=== PATIENT | female | born 1925 | race Caucasian/White ===

== ENCOUNTER 2016-08-25 07:48 | Inpatient (IN) | payer MEDICARE, OTHER ==
[~2016-08-25] VITALS: Ht 149.9 cm; Wt 64.1 kg
[2016-08-25] VITALS (22 sets, daily range): BP systolic 85–175; BP diastolic 61–93; PULSE 101–130; RESP 12–24; TEMP 98.5–99.4; O2SAT 90–100
[~2016-08-25 07:48] MED LIST: APIX2.5T PO; FERR324T4 PO; METO50TA PO; OXYC1SOL5 PO; PROC5 PO; STOO100C PO; TEMA15 PO; THERM PO
--- NOTE | 2016-08-25 08:06 | PD ---
HPI Chief Complaint: respiratory distress Time Seen by Provider: 08:01 Travel History International Travel<30 days: No Contact w/Intl Traveler<30days: No Traveled to known affect area: No History of Present Illness HPI This is an 89-year-old female who presents from the shelter with complaints of shortness of breath. The patient is unable to give any history as she is nonverbal. According to paramedics, call was for difficulty breathing. When they arrived they found her tachypneic with a respiratory rate in the 30s. They also report her O2 sats in the high 80s. They placed her on 100% nonrebreather and transported here. According to her MAR, it appears that she has COPD as well as possible CHF. There is no other history that I could obtain. PFSH Past Medical History Anxiety: Yes Cancer: No Cardiovascular Problems: No COPD: Yes Dementia: Yes (per family) Psychiatric: No Past Surgical History Joint Replacement: Yes (L HIP AND NOW R HIP) Pacemaker: No Social History Alcohol Use: No Tobacco Use: No Substance Use: No Allergies-Medications (Allergen,Severity, Reaction): Coded Allergies: No Known Allergies (Unverified , 03/15/15) Reported Meds & Prescriptions Reported Meds & Active Scripts Active Eliquis (Apixaban) 2.5 Mg Tab 2.5 Mg PO BID Colace (Docusate Sodium) 100 Mg Cap 100 Mg PO DAILY Ferrous Sulfate 324 Mg Tab 325 Mg PO BID Restoril 15 mg (Temazepam) 15 Mg Cap 15 Mg PO HS PRN Compazine 5 Mg Tab (Prochlorperazine Maleate) 5 Mg Tab 5 Mg PO Q6H PRN Oxycodone/Acetaminophen 5 mg/325 mg 1 Tab Tab 1 Tab PO Q4H PRN Thera M Plus (Multivitamins/Minerals Therap) 1 Tab Tab 1 Tab PO BID Metoprolol Tartrate 50 Mg Tab 50 Mg PO Q12H Review of Systems ROS Limitations: Clinical Condition (patient unable to give any history. Review of systems obtained from paramedics.) Respiratory: Positive: Shortness of Breath Physical Exam Narrative GENERAL: Well-developed female in moderate to severe respiratory distress. The patient is nonverbal and not able to provide history. SKIN: Focused skin assessment warm/dry. HEAD: Atraumatic. Normocephalic. EYES: No scleral icterus. No injection or drainage. ENT: No nasal bleeding or discharge. Mucous membranes pink. NECK: Trachea midline. Supple CARDIOVASCULAR: Regular rate and rhythm. No murmur appreciated. RESPIRATORY: Positive accessory muscle use. Tachypnea with a respiratory rate in the 30s. Patient had questionable Rales at the bases. GASTROINTESTINAL: Abdomen soft, non-distended. No pulsatile masses. MUSCULOSKELETAL: No obvious deformities. No clubbing. No cyanosis. No edema. NEUROLOGICAL: Awake and nonverbal. No obvious cranial nerve deficits. Motor grossly within normal limits. PSYCHIATRIC: Appropriate mood and affect; insight and judgment normal. Data Data Last Documented VS Vital Signs Date Time Temp Pulse Resp B/P Pulse Ox O2 Delivery O2 Flow Rate FiO2 08/25/16 10:20 118 16 122/68 100 08/25/16 09:45 60 08/25/16 08:50 Venturi Mask 08/25/16 08:26 10 08/25/16 08:23 99.4 Orders Complete Blood Count With Diff (08/25/16 08:01) Comprehensive Metabolic Panel (08/25/16 08:01) B-Type Natriuretic Peptide (08/25/16 08:01) Ckmb (Isoenzyme) Profile (08/25/16 08:01) Troponin I (08/25/16 08:01) Arterial Blood Gas (Abg) (08/25/16 08:01) Urinalysis - C+S If Indicated (08/25/16 08:01) Iv Access Insert/Monitor (08/25/16 08:01) Electrocardiogram (08/25/16 08:01) Ecg Monitoring (08/25/16 08:01) Oximetry (08/25/16 08:01) Oxygen Administration (08/25/16 08:01) Chest, Single Ap (08/25/16 08:01) Sodium Chloride 0.9% Flush (Ns Flush) (08/25/16 08:15) Methylprednisolone So Succ Inj (Solumedr (08/25/16 08:15) Albuterol-Ipratropium Neb (Duoneb Neb) (08/25/16 08:15) Albuterol Neb (Albuterol Neb) (08/25/16 08:15) Furosemide Inj (Lasix Inj) (08/25/16 08:45) Etomidate Inj (Amidate Inj) (08/25/16 09:30) Succinylcholine Inj (Quelicin Inj) (08/25/16 09:30) Propofol 1000 Mg/100 Ml Inj (Diprivan 10 (08/25/16 09:30) ^ Infusion (08/25/16 09:29) RASS (08/25/16 09:29) Neurological Rass Scale CARISSA.Q2H (08/25/16 09:29) Admit To Inpatient (08/25/16 ) Code Status (08/25/16 09:59) Vital Signs (Adult) CARISSA.Q1H (08/25/16 09:59) Activity Bed Rest (08/25/16 09:59) ^ Elevate Head Of Bed (08/25/16 09:59) Neuro Checks . ORDERED (08/25/16 09:59) Intake + Output Q1H (08/25/16 09:59) Pantoprazole Inj (Protonix Inj) (08/25/16 11:00) Albuterol-Ipratropium Neb (Duoneb Neb) (08/25/16 12:00) Albuterol-Ipratropium Neb (Duoneb Neb) (08/25/16 10:00) Complete Blood Count With Diff (08/26/16 04:00) Comprehensive Metabolic Panel (08/26/16 04:00) Magnesium (Mg) (08/26/16 04:00) Phosphorus (Po4) (08/26/16 04:00) Sputum Culture And Gram Stain (08/25/16 09:59) Dish Stacker / Telemetry CARISSA.Q8H (08/25/16 09:59) Heparin Inj (Heparin Inj) (08/25/16 10:00) ^ Initiate Protocol (08/25/16 09:59) Instruction (08/25/16 09:59) [facility] [place] (08/25/16 10:00) Chlorhexidine 2% Cloth (Chlorhexidine 2% (08/26/16 04:00) Chlorhexidine 2% Cloth (Chlorhexidine 2% (08/25/16 10:00) [facility]sa Pcr Surveillance (08/25/16 09:59) Docusate Sodium-Senna (Araceli-Colace) (08/25/16 10:00) Magnesium Hydroxide Liq (Milk Of Magnesi (08/25/16 10:00) Sennosides (Senokot) (08/25/16 10:00) Bisacodyl Supp (Dulcolax Supp) (08/25/16 10:00) Lactulose Liq (Lactulose Liq) (08/25/16 10:00) Inpatient Certification (08/25/16 ) Methylprednisolone So Succ Inj (Solumedr (08/25/16 14:00) Troponin I (08/25/16 14:00) Troponin I (08/25/16 20:00) Echo 2d Comp With Doppler (08/25/16 ) Ct Pulmonary Angiogram (08/25/16 ) Piperacil-Tazo 3.375 Gm Premix (Zosyn 3. (08/25/16 11:00) Vancomycin Inj (Vancomycin Inj) (08/25/16 11:30) Blood Glucose Goal (Criteria) (08/25/16 10:05) Hypoglycemia 70 Mg/Dl Or < (08/25/16 10:05) Notify Dr: Other (08/25/16 10:05) Dextrose 50% In Adryan (Vial) Inj (D50w (Vi (08/25/16 10:15) Glucagon Inj (Glucagon Inj) (08/25/16 10:15) Insulin Human Reg Supp Scale (Novolin R (08/25/16 11:00) Chest, Single Ap (08/25/16 10:15) Ct Brain W/O Iv Contrast(Rout) (08/25/16 ) Apixaban (Eliquis) (08/25/16 12:00) Blood Culture (08/25/16 10:25) Scd Bilateral/Knee High CARISSA.QSHIFT (08/25/16 10:25) Prothrombin Time / Inr (Pt) (08/25/16 10:29) Docusate Sodium-Senna (Araceli-Colace) (08/25/16 12:00) Labs Laboratory Tests Test 08/25/16 08/25/16 08/25/16 08:00 08:08 09:50 White Blood Count 13.0 TH/MM3 Red Blood Count 5.06 MIL/MM3 Hemoglobin 14.0 GM/DL Hematocrit 44.3 % Mean Corpuscular Volume 87.5 FL Mean Corpuscular Hemoglobin 27.7 PG Mean Corpuscular Hemoglobin 31.6 % Concent Red Cell Distribution Width 14.5 % Platelet Count 324 TH/MM3 Mean Platelet Volume 8.4 FL Neutrophils (%) (Auto) % Lymphocytes (%) (Auto) % Monocytes (%) (Auto) % Eosinophils (%) (Auto) % Basophils (%) (Auto) % Neutrophils # (Auto) TH/MM3 Lymphocytes # (Auto) TH/MM3 Monocytes # (Auto) TH/MM3 Eosinophils # (Auto) TH/MM3 Basophils # (Auto) TH/MM3 CBC Comment AUTO DIFF Differential Total Cells 100 Counted Neutrophils % (Manual) 39 % Band Neutrophils % 41 % Lymphocytes % 11 % Monocytes % 7 % Neutrophils # (Manual) 10.7 TH/MM3 Metamyelocytes 2 % Nucleated Red Blood Cells 1 /100 WBC Differential Comment FINAL DIFF MANUAL Toxic Granulation 1+ Toxic Vacuolation PRESENT Platelet Estimate NORMAL Platelet Morphology Comment ENLARGED Sodium Level 144 MEQ/L Potassium Level 3.9 MEQ/L Chloride Level 103 MEQ/L Carbon Dioxide Level 31.5 MEQ/L Anion Gap 10 MEQ/L Blood Urea Nitrogen 34 MG/DL Creatinine 0.96 MG/DL Estimat Glomerular Filtration 55 ML/MIN Rate Random Glucose 163 MG/DL Calcium Level 9.7 MG/DL Total Bilirubin 0.4 MG/DL Aspartate Amino Transf 22 U/L (AST/SGOT) Alanine Aminotransferase 28 U/L (ALT/SGPT) Alkaline Phosphatase 91 U/L Total Creatine Kinase 61 U/L Troponin I 0.25 NG/ML B-Type Natriuretic Peptide 530 PG/ML Total Protein 7.4 GM/DL Albumin 2.5 GM/DL Blood Gas Puncture Site RT RADIAL Blood Gas Patient Temperature 98.6 Blood Gas HCO3 32 mmol/L Blood Gas Base Excess 6.4 mmol/L Blood Gas Oxygen Saturation 65 % Arterial Blood pH 7.35 Arterial Blood Partial 59 mmHg Pressure CO2 Arterial Blood Partial 36 mmHG Pressure O2 Arterial Blood Oxygen Content 13.2 Vol % Arterial Blood 1.0 % Carboxyhemoglobin Arterial Blood Methemoglobin 0.7 % Blood Gas Hemoglobin 14.5 G/DL Oxygen Delivery Device ROOM AIR Blood Gas Inspired Oxygen 21 % Urine Color YELLOW Urine Turbidity HAZY Urine pH 5.5 Urine Specific Jackson 1.017 Urine Protein 30 mg/dL Urine Glucose (UA) NEG mg/dL Urine Ketones NEG mg/dL Urine Occult Blood SMALL Urine Nitrite NEG Urine Bilirubin NEG Urine Urobilinogen 2.0 MG/DL Urine Leukocyte Esterase NEG Urine RBC 2 /hpf Urine WBC 3 /hpf Urine Squamous Epithelial 1 /hpf Cells Urine Bacteria RARE /hpf Urine Hyaline Casts 7 /lpf Urine Granular Casts 1 /lpf Urine Mucus FEW /lpf Microscopic Urinalysis Comment CULT NOT INDICATED MDM Medical Decision Making Medical Screen Exam Complete: Yes Emergency Medical Condition: Yes Differential Diagnosis COPD exacerbation versus pneumonia versus CHF. Narrative Course 89-year-old female presents with respiratory distress from the shelter. The patient was tachypnic and tachycardic when she arrived. The patient was nonverbal secondary to severe respiratory distress. Blood gas showed PO2 of 36. Patient was starting to fatigue. She was intubated by this physician. Her blood work also shows that she's got prerenal azotemia. She's been given a 500 cc fluid bolus. Troponin was elevated which is likely secondary to her tachycardia. There was no acute ST elevation noted on EKG however this was not an ideal EKG as she was sinus tach. Critical Care Narrative Aggregate critical care time was 45 minutes. Time to perform other separately billable procedures was not included in the critical care time. My time did not include minutes spent treating any other patients simultaneously or on activities that did not directly contribute to the patient's treatment. The services I provided to this patient were to treat and/or prevent clinically significant deterioration that could result in: I provided critical care services requiring my management, as noted below: Chart data review, documentation time, medication orders and management, vital sign assessments/reviewing monitor data, ordering and reviewing lab tests, ordering and interpreting/reviewing x-rays and diagnostic studies, care of the patient and discussion of the patient with the admitting physicians. Procedures Procedure Narrative Intubated emergently: INTUBATION: The patient was put in optimal position for the procedure. Rapid sequence intubation was initiated by me using 20 milligrams of etomidate IV and 100 milligrams of succinylcholine IV. The patient was intubated with a 7.5 cuffed endotracheal tube. Tube placement was confirmed by visualization of the tube and balloon passing through the cords, capnometry and subsequent chest x- ray. Breath sounds were equal and well aerated bilaterally postintubation. No breath sounds over stomach. Patient tolerated procedure well. Sepsis Criteria SIRS Criteria (2 or more): Heart rate over 90, RR > 20 or PaCO2 < 32 Diagnosis Primary Impression: Respiratory failure Additional Impressions: Prerenal azotemia Elevated troponin Admitting Information Admitting Physician Requests: Admit Héctor Diaz MD Aug 25, 2016 08:06
[2016-08-25 08:12] LABS: BLOOD GAS BASE EXCESS 6.4 mmol/L (-2-2); BLOOD GAS HCO3 32 mmol/L (22-26); BLOOD GAS METHEMOGLOBIN 0.7 % (0-2); BLOOD GAS O2 HGB SATURATION 65 % (90-100); BLOOD GAS OXYGEN CONTENT 13.2 Vol % (12.0-20.0); BLOOD GAS PCO2 59 mmHg (38-42); BLOOD GAS PO2 36 mmHG (61-120); BLOOD GAS TOTAL HGB 14.5 G/DL (12.0-16.0); TEMP CORR TO 98.6
[2016-08-25 08:13] LABS: CRITICAL VALUE YES; DRAW SITE RT RADIAL; FIO2 21 %; NUMBER OF ARTERIAL PUNCTURES 1; OXYGEN DEVICE ROOM AIR; ULNAR PULSE Y
[2016-08-25] MEDS ORDERED: RESP: ALBUTEROL 2.5 MG/3 ML NEB (SCH) INH (08:15)
[2016-08-25] MEDS ORDERED: methylPREDNISolone SOD SUCC 125 MG/2 ML VIAL IVP ONE (08:15)
[2016-08-25] MEDS ORDERED: RESP: ALBUTEROL 2.5 MG/IPRATROPIUM 0.5 MG NEB (SCH) INH ONE (08:15)
[2016-08-25 08:22] LABS: HEMATOCRIT 44.3 % (35.0-46.0); MEAN CELL VOLUME 87.5 FL (80.0-100.0); MEAN CORPUSCULAR HEMOGLOBIN 27.7 PG (27.0-34.0); MEAN CORPUSCULAR HGB CONC 31.6 % (32.0-36.0); PLATELET COUNT 324 TH/MM3 (150-450); RED BLOOD COUNT 5.06 MIL/MM3 (4.00-5.30); RED CELL DISTRIBUTION WIDTH 14.5 % (11.6-17.2)
--- NOTE | 2016-08-25 08:22 | RADRPT ---
EXAM DATE/TIME: 08/25/2016 08:15 [facility] COMPARISON: CHEST SINGLE AP, March 15, 2015, 4:16. INDICATIONS : Short of breath MEDICAL HISTORY : unobtainable SURGICAL HISTORY : bilateral hip replacements ENCOUNTER: Initial ACUITY: 1 day PAIN SCORE: Non-responsive. LOCATION: Bilateral chest FINDINGS: Cardiac silhouette is enlarged and pulmonary vascularity is indistinct. There is mild diffuse interst itial prominence with patchy bibasilar airspace disease and likely trace bilateral pleural effusions. Remainder of the exam is unchanged. CONCLUSION: 1. Cardiomegaly with mild congestive pattern. Russ Tucker MD on August 25, 2016 at 8:18 Board Certified Radiologist. This report was verified electronically.
[2016-08-25 08:24] LABS: HEMO FLAGS AUTO DIFF
[2016-08-25 08:39] LABS: ALT (GPT) 28 U/L (10-53); ANION GAP 10 MEQ/L (5-15); AST (GOT) 22 U/L (15-37); BICARBONATE 31.5 MEQ/L (21.0-32.0); BLOOD UREA NITROGEN 34 MG/DL (7-18); CHLORIDE 103 MEQ/L (98-107); GLOMERULAR FILTRATION RATE 55 ML/MIN (>89); POTASSIUM 3.9 MEQ/L (3.5-5.1); SODIUM (NA) 144 MEQ/L (136-145)
[2016-08-25 08:43] LABS: ALKALINE PHOSPHATASE 91 U/L (45-117); TOTAL BILIRUBIN ADULT 0.4 MG/DL (0.2-1.0)
[2016-08-25] MEDS ORDERED: FUROSEMIDE 40 MG/4 ML VIAL IV PUSH ONE (08:45)
[2016-08-25 08:46] LABS: CREATINE KINASE 61 U/L (26-192)
[2016-08-25 08:51] LABS: BANDS 41 % (0-6); CORRECTED NUCLEATED RBC 1 /100 WBC (0-0); METAMYELOCYTES 2 % (0-1); NEUTROPHIL # MANUAL DIFF 10.7 TH/MM3 (1.8-7.7); POLYS (SEG NEUTROPHILS) 39 % (16-70); WBC DIFF SAMPLE 100
[2016-08-25 08:52] LABS: TOXIC GRANULATION 1+ (NORMAL); TOXIC VACUOLATION PRESENT (NONE SEEN)
[2016-08-25 08:53] LABS: PLATELET ESTIMATE SMEAR NORMAL (NORMAL); PLATELET MORPHOLOGY ENLARGED (NORMAL); SCAN/DIFF FINAL DIFF MANUAL
[2016-08-25] MEDS ORDERED: SUCCINYLCHOLINE CHLORIDE 200 MG/10 ML VIAL IVP ONE (09:30)
[2016-08-25] MEDS ORDERED: ETOMIDATE 20 MG/10 ML VIAL IVP ONE (09:30)
[2016-08-25] MEDS: PROPOFOL 1000 MG/100 ML INJ 100 ML IV SCH ×3 (09:45→22:18)
[2016-08-25] MEDS ORDERED: MISCELLANEOUS NURSING INFORMATION XX SCH (10:00)
[2016-08-25] MEDS ORDERED: RESP: ALBUTEROL 2.5 MG/IPRATROPIUM 0.5 MG NEB (PRN) INH (10:00)
[2016-08-25] MEDS ORDERED: SENNOSIDES 8.6 MG TAB PO PRN (10:00)
[2016-08-25] MEDS ORDERED: LACTULOSE SYRUP 20 GM/30 ML CUP PO PRN (10:00)
[2016-08-25] MEDS ORDERED: CHLORHEXIDINE GLUCONATE 2 % 1 PACK (2 CLOTHS) TOP PRN (10:00)
[2016-08-25] MEDS ORDERED: DOCUSATE SODIUM 50 MG/SENNA 8.6 MG TAB PO SCH (10:00)
[2016-08-25] MEDS ORDERED: BISACODYL 10 MG SUPP RECTAL PRN (10:00)
[2016-08-25] MEDS ORDERED: HEPARIN SODIUM - SQ 10,000 UNITS/ML VIAL SQ SCH (10:00)
[2016-08-25] MEDS ORDERED: MAGNESIUM HYDROXIDE SUSP 30 ML CUP PO PRN (10:00)
[2016-08-25] MEDS ORDERED: DEXTROSE 50% IN WATER 50 ML VIAL(D50) IV PRN (10:15)
[2016-08-25] MEDS ORDERED: GLUCAGON 1 MG/ML VIAL OTHER PRN (10:15)
[2016-08-25 10:16] LABS: BACTERIA, URINE RARE /hpf; BLOOD, URINE SMALL (NEG); GLUCOSE,URINE NEG (NEG); GRANULAR CAST, URINE 1 /lpf; HYALINE CAST, URINE 7 /lpf (RARE); KETONE, URINE NEG (NEG); MUCUS URINE FEW /lpf (OCC); NITRITE,URINE NEG (NEG); PH, URINE 5.5 (5.0-8.5); SQUAMOUS EPITHELIAL CELL URINE 1 /hpf (0-5); URINE COLOR YELLOW (YELLW/STRAW)
[2016-08-25 10:18] LABS: COMMENT (UR) CULT NOT INDICATED; CULTURE IF INDICATED CULT NOT INDICATED
[2016-08-25 10:58] LABS: BLOOD GAS BASE EXCESS 1.5 mmol/L (-2-2); BLOOD GAS CARBOXYHEMOGLOBIN 0.9 % (0-4); BLOOD GAS HCO3 28 mmol/L (22-26); BLOOD GAS METHEMOGLOBIN 0.6 % (0-2); BLOOD GAS O2 HGB SATURATION 92 % (90-100); BLOOD GAS PCO2 63 mmHg (38-42); BLOOD GAS PO2 75 mmHG (61-120); BLOOD GAS TOTAL HGB 13.9 G/DL (12.0-16.0); TEMP CORR TO 98.6
--- NOTE | 2016-08-25 10:58 | MH ---
cc: ARA MATHIS M.D. DATE OF ADMISSION: 08/25/2016 DATE OF : 1925 HISTORY OF PRESENT ILLNESS The patient is an 89-year-old female with a past medical history of questionable CHF, COPD and dementia, who presented to the [facility] ED from a local nursing facility after she was found tachypneic, hypoxic and in respiratory distress. Upon arrival of the paramedics the patient was reported to have an O2 saturation in the 80s and she was subsequently placed on 100% non-rebreather en route to the ED. She is nonverbal. ABG was performed on room air which showed pH of 7.35, CO2 59, PAO2 36, bicarb 32, sats of 65%. Due to her respiratory failure she was subsequently intubated with etomidate, succinylcholine and placed on full mechanical ventilation. In the ER she was given Solu-Medrol 125 mg IV push, bronchodilator treatment and Lasix 40 mg IV push. A chest x-ray showed cardiomegaly with mild CHF. Her laboratory data was significant for elevated BNP at 530 with a troponin 0.25. Also she has leukocytosis with a WBC of 13 associated with bandemia. The rest of the history is limited as the patient is intubated. PAST MEDICAL HISTORY 1. COPD. 2. CHF. 3. Anxiety disorder. 4. Dementia. PAST SURGICAL HISTORY Previous hip replacements bilaterally. SOCIAL HISTORY A alf resident. Non-smoker, non-drinker per records. FAMILY HISTORY Noncontributory. MEDICATIONS Reported medications include: 1. Eliquis 2.5 mg b.i.d. 2. Colace. 3. Ferrous sulfate. 4. Metoprolol. REVIEW OF SYSTEMS As per HPI. The rest of the review of systems is unobtainable. PHYSICAL EXAMINATION GENERAL: An 89-year-old female intubated for hypoxemic and hypercapnic respiratory failure. VITAL SIGNS: Temperature 99.4 rectally, pulse 108, blood pressure 175/93, saturation 97%. Vent setting: Assist control ventilation with a rate of 14, tidal volume 500, PEEP of 5, FIO2 60%. HEENT: Atraumatic, normocephalic. Pupils equal, round and reactive to light and accommodation. Extraocular muscles intact. Conjunctiva pink. Non-icteric sclera. Oral mucosa within normal. NECK: Supple. No JVD, adenopathy or thyromegaly. Trachea in the midline. CARDIOVASCULAR: Tachycardic. Normal S1, S2. No murmurs, rubs or gallops noted. PULMONARY: Bilateral equal entry. No wheezing. A few coarse breath sounds. ABDOMEN: Soft, nontender, no distention. Positive bowel sounds. EXTREMITIES: No cyanosis, clubbing or edema. NEUROLOGIC: Intubated and sedated with Diprivan. LABORATORY DATA WBC 13, hemoglobin 14, hematocrit 44, platelet count 324, bands 41. Sodium 144, calcium 3.9, chloride 103, CO2 31, BUN 34, creatinine 0.96, glucose 163. Troponin 0.25. BNP 530. Urinalysis negative for leukocyte esterase, nitrite and 3 wbc's. RADIOGRAPHIC STUDIES Chest x-ray showed cardiomegaly with mild CHF. EKG EKG showed sinus tachycardia with possible atrial flutter, rate of 141 beats per minute. IMPRESSION 1. Acute hypoxemic and hypercapnic respiratory failure. 2. COPD exacerbation. 3. CHF. 4. Elevated troponin. 5. Leukocytosis with bandemia. 6. History of dementia. RECOMMENDATIONS 1. Continue with Diprivan infusion for sedation and daily sedation vacation. The patient is for a CT scan of the brain without contrast. 2. Continue with vent support and maintain sats above 92%. 3. Bronchodilators in the form of DuoNeb q.4h., plus q.2h. p.r.n. for shortness of breath, and will initiate ICU vent bundle. 4. Continue with IV steroids in the form of Solu-Medrol 60 mg IV q.8h. 5. Increase respiratory rate to 16 and decrease FIO2 to 50% and check ABG post intubation. 6. Monitor heart rate and blood pressure closely and maintain MAP greater than 65 mmHg. 7. Will give aspirin 325 mg p.o. x1. 8. Monitor troponins. 9. Will obtain a 2-D echo to evaluate LV function and to rule out regional wall motion abnormalities. She was given Lasix 40 mg IV x1 in the ED. 10. Monitor renal function, I's and O's, and electrolyte replacement per protocol. 11. Will obtain a CT pulmonary angiogram of the chest to rule out PE and for further evaluation of pulmonary parenchyma. 12. Keep n.p.o. for now and place on Protonix 40 mg IV daily for GI prophylaxis. Will initiate tube feeds in the next 24 hours if the patient remains intubated. 13. Place on broad-spectrum antibiotics in the form of Zosyn/Azithromycin. In addition will give one dose of vancomycin. Monitor for signs of infection which include fever and WBC. Will check blood cultures x2 sets prior to initiation of antibiotics. 14. Sliding scale insulin with Accu-Chek q.6h. for glycemic control. 15. GI prophylaxis with Protonix 40 mg daily and DVT prophylaxis with SCDs, and will resume Eliquis 2.5 mg b.i.d. 16. Further recommendations will be based on the hospital course. MD NEERAJ Haque/SEAN /10:25 AM /10:36 AM JESUS
[2016-08-25 10:59] LABS: CRITICAL VALUE YES; DRAW SITE RT BRACHIAL; FIO2 50 %; NUMBER OF ARTERIAL PUNCTURES 1; OXYGEN DEVICE VENTILATOR; VENT SETTINGS AC16/500/5PEEP
[2016-08-25 11:00] LABS: STAT YES
[2016-08-25] MEDS: INSULIN NovoLIN REGULAR SUPPLEMENTAL SCALE SQ SCH ×3 (11:00→23:00)
--- NOTE | 2016-08-25 11:05 | ECHRPT ---
Indication: CHF CONCLUSIONS Technically difficult study. The left ventricle is not well visualized. Normal left ventricular size. Mild concentric left ventricular hypertrophy. The left ventricular systolic function is normal with an estimated ejection fraction in the range of 55-60%. No regional wall motion abnormalities are present. The right ventricle is mildly dilated. The right ventricular systoilc function is normal. Structurally normal tricuspid valve. There is mild tricuspid valve regurgitation. The estimated pulmonary arterial pressure is 33 mmHg. Normal estimated pulmonary pressures. BP: 122 / 68 HR: 124 Rhythm: Other MEASUREMENTS (Male / Female) Normal Values Technical Quality:Technically difficult study 2D ECHO LV Diastolic Diameter PLAX 3.4 cm 4.2 - 5.9 / 3.9 - 5.3 cm LV Systolic Diameter PLAX 2.8 cm IVS Diastolic Thickness 0.9 cm 0.6 - 1.0 / 0.6 - 0.9 cm LVPW Diastolic Thickness 0.8 cm 0.6 - 1.0 / 0.6 - 0.9 cm LV Relative Wall Thickness 0.5 LVOT Diameter 2.0 cm M-MODE Aortic Root Diameter MM 2.5 cm LA Systolic Diameter MM 2.5 cm LA Ao Ratio MM 1.0 AV Cusp Separation MM 1.8 cm DOPPLER AV Peak Velocity 176.0 cm/s AV Peak Gradient 12.4 mmHg LVOT Peak Velocity 134.0 cm/s LVOT Peak Gradient 7.2 mmHg AV Area Cont Eq pk 2.4 cm LV E' Septal Velocity 6.3 cm/s TR Peak Velocity 238.0 cm/s TR Peak Gradient 22.7 mmHg PV Peak Velocity 82.8 cm/s PV Peak Gradient 2.7 mmHg FINDINGS LEFT VENTRICLE The left ventricle is not well visualized. Normal left ventricular size. Mild concentric left ventricular hypertrophy. The left ventricular systolic function is normal with an estimated ejection fraction in the range of 55-60%. No regional wall motion abnormalities are present. RIGHT VENTRICLE The right ventricle is mildly dilated. The right ventricular systoilc function is normal. LEFT ATRIUM The left atrial size is normal. RIGHT ATRIUM The right atrial size is normal. ATRIAL SEPTUM Normal atrial septal thickness without atrial level shunting by limited color doppler interrogation. AORTA The aortic root and proximal ascending aorta are normal in size on limited imaging. MITRAL VALVE Mitral annular calcification is present. Structurally normal mitral valve. AORTIC VALVE Trileaflet aortic valve. Diffuse calcification of the aortic valve. Aortic valve sclerosis is present. No aortic valve regurgitation. No aortic valve stenosis. TRICUSPID VALVE Structurally normal tricuspid valve. There is mild tricuspid valve regurgitation. The estimated pulmonary arterial pressure is 33 mmHg. Normal estimated pulmonary pressures. PULMONARY VALVE The pulmonary valve is not well visualized. VESSELS The inferior vena cava is normal in size. PERICARDIUM No pericardial effusion. Pepe Sy MD, FACC (Electronically Signed) Final Date:25 August 2016 11:04
--- NOTE | 2016-08-25 11:06 | RADRPT ---
EXAM DATE/TIME: 08/25/2016 10:13 [facility] COMPARISON: CHEST SINGLE AP, August 25, 2016, 8:15. INDICATIONS : Post intubation MEDICAL HISTORY : Unobtainable SURGICAL HISTORY : Bilateral hip replacements ENCOUNTER: Subsequent ACUITY: 1 day PAIN SCORE: Non-responsive. LOCATION: Bilateral chest FINDINGS: ET tube, nasogastric tube are in good position. The lungs are better aerated. Heart remains enlarge d. Significant interstitial edema persists. There is no pneumothorax. CONCLUSION: 1. Support apparatus in good position. 2. Congestive failure. Oren Patricia MD FACR on August 25, 2016 at 10:51 Board Certified Radiologist. This report was verified electronically.
[2016-08-25 11:28] LABS: PROTHROMBIN TIME - PATIENT 11.4 SEC (9.8-11.6)
[2016-08-25] MEDS ORDERED: VANCOMYCIN INJ 1,000 MG in SODIUM CHLOR 0.9% 250 ML INJ 250 ML IV ONE (11:30)
[2016-08-25] MEDS ORDERED: IOHEXOL 350 MG/ML 10 ML VIAL (for RAD DIAG) IV ONE (11:46)
[2016-08-25] MEDS: APIXABAN 2.5 MG TABLET PO SCH ×2 (12:00→21:19)
[2016-08-25] MEDS: DOCUSATE SODIUM 50 MG/SENNA 8.6 MG TAB PO SCH ×2 (12:00→21:19)
--- NOTE | 2016-08-25 12:09 | RADRPT ---
EXAM DATE/TIME: 08/25/2016 11:43 [facility] COMPARISON: No previous studies available for comparison. INDICATIONS : Shortness of breath, rule out bleed. IV CONTRAST: 74 cc Omnipaque 350 (iohexol) IV RADIATION DOSE: 12.83 CTDIvol (mGy) MEDICAL HISTORY : Non-responsive. SURGICAL HISTORY : Non-responsive. ENCOUNTER: Initial ACUITY: 1 day PAIN SCALE: Non-responsive LOCATION: chest TECHNIQUE: Volumetric scanning of the chest was performed using a pulmonary embolism protocol MIP images were re constructed. Using automated exposure control and adjustment of the mA and/or kV according to patien t size, radiation dose was kept as low as reasonably achievable to obtain optimal diagnostic quality images. FINDINGS: The examination is of good diagnostic quality. No pulmonary embolus is identified. The endotracheal tubes in good position. As a nasogastric tube in good position. There are consolidative changes and minimal bibasilar effusions. There is COPD change and tubular bro nchiectasis in both lower lobes. The examination also demonstrates a fairly diffuse reticular nodular appearing infiltrate. I believe this probably represents inflammatory changes and in the airway dise ase however, other differential considerations would include TB, sarcoid and possible fungal infectio n. No significant hilar or mediastinal adenopathy is seen. The visualized bony structures are intact. CONCLUSION: 1. No pulmonary embolus identified. 2. Tubular bronchiectasis and diffuse reticular-nodular infiltrate. 3. Bibasal atelectasis. Dangelo Patricia MD on August 25, 2016 at 12:01 Board Certified Radiologist. This report was verified electronically.
[2016-08-25] MEDS: RESP: ALBUTEROL 2.5 MG/IPRATROPIUM 0.5 MG NEB (SCH) INH ×3 (12:12→20:10)
--- NOTE | 2016-08-25 12:19 | RADRPT ---
EXAM DATE/TIME: 08/25/2016 11:44 [facility] COMPARISON: No previous studies available for comparison. INDICATIONS : Shortness of breath/ rule out bleed, altered mental status. RADIATION DOSE: 56.35 CTDIvol (mGy) MEDICAL HISTORY : None SURGICAL HISTORY : None. ENCOUNTER: Initial ACUITY: 1 day PAIN SCALE: 1/10 LOCATION: Cranial TECHNIQUE: Multiple contiguous axial images were obtained of the head. Using automated exposure control and adj ustment of the mA and/or kV according to patient size, radiation dose was kept as low as reasonably a chievable to obtain optimal diagnostic quality images. FINDINGS: Diffuse cerebral atrophy is noted. Moderate to severe periventricular and subcortical white matter s mall vessel ischemic changes are noted bilaterally. Bilateral pontine ischemic changes are also note d. Old lacunar infarcts are noted within the right cerebellar hemisphere. There is no acute hemorrh age, midline shift or extraaxial fluid collections. No acute infarction is noted. Minimal mucosal t hickening is noted within the left maxillary sinus. CONCLUSION: 1. Diffuse cerebral atrophy. 2. Diffuse periventricular and subcortical white matter small vessel ischemic changes as well as quiana ateral pontine small vessel ischemic changes. 3. Scattered old lacunar infarcts within the right cerebellar hemisphere. 4. No acute infarct, acute hemorrhage, mass effect or extraaxial fluid collections. 5. Minimal mucosal thickening within the left maxillary sinus. Wilner Smith MD on August 25, 2016 at 11:55 Board Certified Radiologist. This report was verified electronically.
[2016-08-25] MEDS: PIPERACIL-TAZO 3.375 GM PREMIX 50 ML IV SCH ×3 (12:28→22:19)
[2016-08-25] MEDS: PANTOPRAZOLE SODIUM 40 MG VIAL IV SCH (12:28)
[2016-08-25] MEDS: methylPREDNISolone SOD SUCC 40 MG/1 ML VIAL IV PUSH SCH ×2 (14:26→21:20)
[2016-08-25] MEDS ORDERED: ASPIRIN 325 MG TAB PO ONE (15:45)
[2016-08-25 17:39] LABS: BLOOD GAS BASE EXCESS 3.7 mmol/L (-2-2); BLOOD GAS CARBOXYHEMOGLOBIN 1.1 % (0-4); BLOOD GAS HCO3 28 mmol/L (22-26); BLOOD GAS METHEMOGLOBIN 1.1 % (0-2); BLOOD GAS O2 HGB SATURATION 92 % (90-100); BLOOD GAS OXYGEN CONTENT 16.6 Vol % (12.0-20.0); BLOOD GAS PCO2 44 mmHg (38-42); BLOOD GAS PO2 68 mmHg (61-120); BLOOD GAS TOTAL HGB 12.9 G/DL (12.0-16.0); CRITICAL VALUE NO; OXYGEN DEVICE VENTILATOR; TEMP CORR TO 98.6
[2016-08-25 17:40] LABS: DRAW SITE RT BRACHIAL; FIO2 50 %; NUMBER OF ARTERIAL PUNCTURES 1; STAT NO; ULNAR PULSE PRESENT; VENT SETTINGS A/C 18/550/+5PEEP
[2016-08-25] MEDS: AZITHROMYCIN INJ 500 MG in SODIUM CHLOR 0.9% 250 ML INJ 250 ML IV SCH (18:08)
[2016-08-26] VITALS (18 sets, daily range): BP systolic 118–157; BP diastolic 70–88; PULSE 91–115; RESP 16–52; TEMP 97.9–98.7; O2SAT 90–98
[2016-08-26] MEDS: RESP: ALBUTEROL 2.5 MG/IPRATROPIUM 0.5 MG NEB (SCH) INH ×7 (01:10→23:37)
[2016-08-26] MEDS: CHLORHEXIDINE GLUCONATE 2 % 1 PACK (2 CLOTHS) TOP SCH (04:00)
[2016-08-26 04:56] LABS: ALKALINE PHOSPHATASE 80 U/L (45-117); TOTAL BILIRUBIN ADULT 0.5 MG/DL (0.2-1.0)
[2016-08-26 05:00] LABS: ALT (GPT) 22 U/L (10-53); ANION GAP 11 MEQ/L (5-15); AST (GOT) 18 U/L (15-37); BICARBONATE 28.7 MEQ/L (21.0-32.0); BLOOD UREA NITROGEN 39 MG/DL (7-18); CHLORIDE 106 MEQ/L (98-107); GLOMERULAR FILTRATION RATE 61 ML/MIN (>89); MAGNESIUM 2.4 MG/DL (1.5-2.5); SODIUM (NA) 146 MEQ/L (136-145)
[2016-08-26] MEDS: INSULIN NovoLIN REGULAR SUPPLEMENTAL SCALE SQ SCH ×4 (05:00→23:00)
[2016-08-26 05:02] LABS: POTASSIUM 3.7 MEQ/L (3.5-5.1)
[2016-08-26] MEDS: methylPREDNISolone SOD SUCC 40 MG/1 ML VIAL IV PUSH SCH ×3 (05:21→21:16)
[2016-08-26] MEDS: PIPERACIL-TAZO 3.375 GM PREMIX 50 ML IV SCH ×4 (05:22→21:17)
[2016-08-26 06:05] LABS: AUTOMATED NEUTROPHIL # 11.3 TH/MM3 (1.8-7.7); BASOPHIL % 0.1 % (0.0-2.0); EOSINOPHIL % 0.1 % (0.0-4.0); HEMATOCRIT 39.6 % (35.0-46.0); HEMO FLAGS DIFF FINAL; LYMPH % 4.7 % (9.0-44.0); LYMPHOCYTE # 0.6 TH/MM3 (1.0-4.8); MEAN CELL VOLUME 85.7 FL (80.0-100.0); MEAN CORPUSCULAR HEMOGLOBIN 27.3 PG (27.0-34.0); MEAN CORPUSCULAR HGB CONC 31.9 % (32.0-36.0); MONO % 5.1 % (0.0-8.0); PLATELET COUNT 251 TH/MM3 (150-450); RED BLOOD COUNT 4.62 MIL/MM3 (4.00-5.30); RED CELL DISTRIBUTION WIDTH 13.9 % (11.6-17.2); WHITE BLOOD COUNT 12.5 TH/MM3 (4.0-11.0)
[2016-08-26] MEDS: PROPOFOL 1000 MG/100 ML INJ 100 ML IV SCH ×2 (06:11→08:17)
--- NOTE | 2016-08-26 08:16 | HHI.CCPN ---
Subjective Remarks/Hospital Course The patient is an 89-year-old female with a past medical history of ? CHF, COPD and dementia, who presented to the [facility] ED from a local nursing facility after she was found tachypneic, hypoxic and in respiratory distress. Upon arrival of the paramedics the patient was reported to have an O2 saturation in the 80s and she was subsequently placed on 100% non-rebreather en route to the ED. She is nonverbal. ABG was performed on room air which showed pH of 7.35, CO2 59, PAO2 36, bicarb 32, sats of 65%. Due to her respiratory failure she was subsequently intubated with etomidate, succinylcholine and placed on full mechanical ventilation. In the ER she was given Solu-Medrol 125 mg IV push, bronchodilator treatment and Lasix 40 mg IV push. A chest x ray showed cardiomegaly with mild CHF. Her laboratory data was significant for elevated BNP at 530 with a troponin 0.25. Also she has leukocytosis with a WBC of 13 associated with bandemia. The rest of the history is limited as the patient is intubated. 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 Patient is sedated with Diprivan and intubated. Afebrile. CTA chest yesterday showed no PE. Objective Vital Signs Date Time Temp Pulse Resp B/P Pulse Ox O2 Delivery O2 Flow Rate FiO2 08/26/16 06:00 98 08/26/16 04:48 95 50 08/26/16 04:00 97.9 16 145/88 08/25/16 08:50 Venturi Mask 08/25/16 08:26 10 Intake and Output 08/25/16 08/25/16 08/26/16 08:00 16:00 00:00 Intake Total 256 ml Output Total 400 ml 250 ml Balance -400 ml 6 ml Result Diagram: 08/26/16 0526 08/26/16 0359 Other Results Laboratory Tests Test 08/25/16 08/25/16 08/25/16 08/25/16 09:50 10:50 10:55 15:03 Urine Color YELLOW Urine Turbidity HAZY Urine pH 5.5 Urine Specific [place] 1.017 Urine Protein 30 mg/dL Urine Glucose (UA) NEG mg/dL Urine Ketones NEG mg/dL Urine Occult Blood SMALL Urine Nitrite NEG Urine Bilirubin NEG Urine Urobilinogen 2.0 MG/DL Urine Leukocyte Esterase NEG Urine RBC 2 /hpf Urine WBC 3 /hpf Urine Squamous Epithelial 1 /hpf Cells Urine Bacteria RARE /hpf Urine Hyaline Casts 7 /lpf Urine Granular Casts 1 /lpf Urine Mucus FEW /lpf Microscopic Urinalysis Comment CULT NOT INDICATED Prothrombin Time 11.4 SEC Prothromb Time International 1.0 RATIO Ratio Blood Gas Puncture Site RT BRACHIAL Blood Gas Patient Temperature 98.6 Blood Gas HCO3 28 mmol/L Blood Gas Base Excess 1.5 mmol/L Blood Gas Oxygen Saturation 92 % Arterial Blood pH 7.27 Arterial Blood Partial 63 mmHg Pressure CO2 Arterial Blood Partial 75 mmHG Pressure O2 Arterial Blood Oxygen Content 18.0 Vol % Arterial Blood 0.9 % Carboxyhemoglobin Arterial Blood Methemoglobin 0.6 % Blood Gas Hemoglobin 13.9 G/DL Oxygen Delivery Device VENTILATOR Blood Gas Ventilator Setting AC16/500/5PEEP Blood Gas Inspired Oxygen 50 % Troponin I 0.20 NG/ML Test 08/25/16 08/25/16 08/25/16 08/26/16 17:25 17:30 20:24 03:59 Blood Gas Puncture Site RT BRACHIAL Blood Gas Patient Temperature 98.6 Blood Gas HCO3 28 mmol/L Blood Gas Base Excess 3.7 mmol/L Blood Gas Oxygen Saturation 92 % Arterial Blood pH 7.42 Arterial Blood Partial 44 mmHg Pressure CO2 Arterial Blood Partial 68 mmHg Pressure O2 Arterial Blood Oxygen Content 16.6 Vol % Arterial Blood 1.1 % Carboxyhemoglobin Arterial Blood Methemoglobin 1.1 % Blood Gas Hemoglobin 12.9 G/DL Oxygen Delivery Device VENTILATOR Blood Gas Ventilator Setting A/C 18/550/+5PEEP Blood Gas Inspired Oxygen 50 % Nasal Screen MRSA (PCR) MRSA NOT DETECTED Troponin I 0.11 NG/ML Sodium Level 146 MEQ/L Potassium Level 3.7 MEQ/L Chloride Level 106 MEQ/L Carbon Dioxide Level 28.7 MEQ/L Anion Gap 11 MEQ/L Blood Urea Nitrogen 39 MG/DL Creatinine 0.88 MG/DL Estimat Glomerular Filtration 61 ML/MIN Rate Random Glucose 178 MG/DL Calcium Level 9.4 MG/DL Phosphorus Level 2.9 MG/DL Magnesium Level 2.4 MG/DL Total Bilirubin 0.5 MG/DL Aspartate Amino Transf 18 U/L (AST/SGOT) Alanine Aminotransferase 22 U/L (ALT/SGPT) Alkaline Phosphatase 80 U/L Total Protein 6.6 GM/DL Albumin 2.1 GM/DL Test 08/26/16 05:26 White Blood Count 12.5 TH/MM3 Red Blood Count 4.62 MIL/MM3 Hemoglobin 12.6 GM/DL Hematocrit 39.6 % Mean Corpuscular Volume 85.7 FL Mean Corpuscular Hemoglobin 27.3 PG Mean Corpuscular Hemoglobin 31.9 % Concent Red Cell Distribution Width 13.9 % Platelet Count 251 TH/MM3 Mean Platelet Volume 8.3 FL Neutrophils (%) (Auto) 90.0 % Lymphocytes (%) (Auto) 4.7 % Monocytes (%) (Auto) 5.1 % Eosinophils (%) (Auto) 0.1 % Basophils (%) (Auto) 0.1 % Neutrophils # (Auto) 11.3 TH/MM3 Lymphocytes # (Auto) 0.6 TH/MM3 Monocytes # (Auto) 0.6 TH/MM3 Eosinophils # (Auto) 0.0 TH/MM3 Basophils # (Auto) 0.0 TH/MM3 CBC Comment DIFF FINAL Differential Comment Imaging Last Impressions Chest X-Ray 08/25/16 1015 Signed Impressions: Service Date/Time: Thursday, August 25, 2016 10:13 - CONCLUSION: 1. Support apparatus in good position. 2. Congestive failure. Oren Patricia MD FACR Head CT 08/25/16 0000 Signed Impressions: Service Date/Time: Thursday, August 25, 2016 11:44 - CONCLUSION: 1. Diffuse cerebral atrophy. 2. Diffuse periventricular and subcortical white matter small vessel ischemic changes as well as bilateral pontine small vessel ischemic changes. 3. Scattered old lacunar infarcts within the right cerebellar hemisphere. 4. No acute infarct, acute hemorrhage, mass effect or extraaxial fluid collections. 5. Minimal mucosal thickening within the left maxillary sinus. Wilner Smith MD CT Angiography 08/25/16 0000 Signed Impressions: Service Date/Time: Thursday, August 25, 2016 11:43 - CONCLUSION: 1. No pulmonary embolus identified. 2. Tubular bronchiectasis and diffuse reticular-nodular infiltrate. 3. Bibasal atelectasis. Dangelo Patricia MD Objective Remarks GENERAL: Patient is 89 yo intubated and sedated SKIN: Warm and dry. HEAD: Normocephalic. EYES: No scleral icterus. No injection or drainage. NECK: Supple, trachea midline. No JVD or lymphadenopathy. Orally intubated CARDIOVASCULAR: Regular rate and rhythm without murmurs, gallops, or rubs. RESPIRATORY: Breath sounds equal bilaterally. No accessory muscle use. GASTROINTESTINAL: Abdomen soft, non-tender, nondistended. MUSCULOSKELETAL: No cyanosis, or edema. Neuro: Sedated. A/P Assessment and Plan 1. Acute hypoxemic and hypercapnic respiratory failure. 2. COPD exacerbation. 3. CHF. 4. Elevated troponin. 5. Leukocytosis with bandemia. 6. History of dementia. Plan: Neuro: On Diprivan infusion for sedation and daily sedation vacation. CT brain: Diffuse cerebral atrophy, no acute infarction, hemorrhage or mass effect. Pulm: Continue with vent support and maintain sats > 92%. Bronchodilators, ICU vent bundle. Continue with Solu-Medrol 60 mg IV q.8h. Start SBT trials and possible extubation. CTA chest 08/25 no PE, bronchiectasis CV: Monitor HR and BP and maintain MAP>65 mmHg. Mild elevated trop ( trending down) echo showed EF 55-60% no RWMA : Monitor renal function, I's and O's, and electrolyte replacement per protocol. GI: On Protonix 40 mg IV daily for GI prophylaxis. Start tube feeds today if remains intubated. ID: Continue with abx( Zosyn/Azithromycin) Vanco x1 dose given 08/25 Follow up on Blood cx, strep pneumonia and Legionella urinary g pending. Check sputum cx. Endo: SSI with Accu-Chek q.6h. for glycemic control. GI prophylaxis with Protonix 40 mg daily and DVT prophylaxis with SCDs, and Eliquis 2.5 mg b.i.d. Level 3 Dereck Sullivan MD Aug 26, 2016 08:16
[2016-08-26] MEDS: SODIUM CHLORIDE 0.9% FLUSH 10 ML FLUSH IVF PRN ×2 (08:18→21:17)
[2016-08-26] MEDS: DOCUSATE SODIUM 50 MG/SENNA 8.6 MG TAB PO SCH ×2 (08:19→19:56)
[2016-08-26] MEDS: APIXABAN 2.5 MG TABLET PO SCH ×2 (08:19→19:56)
[2016-08-26] MEDS: PANTOPRAZOLE SODIUM 40 MG VIAL IV SCH (08:19)
[2016-08-26 11:36] LABS: BLOOD GAS BASE EXCESS 4.8 mmol/L (-2-2); BLOOD GAS HCO3 30 mmol/L (22-26); BLOOD GAS METHEMOGLOBIN 1.1 % (0-2); BLOOD GAS O2 HGB SATURATION 93 % (90-100); BLOOD GAS OXYGEN CONTENT 17.2 Vol % (12.0-20.0); BLOOD GAS PCO2 51 mmHg (38-42); BLOOD GAS PO2 78 mmHg (61-120); BLOOD GAS TOTAL HGB 13.2 G/DL (12.0-16.0); CRITICAL VALUE YES; DRAW SITE LT RADIAL; FIO2 40 %; NUMBER OF ARTERIAL PUNCTURES 1; OXYGEN DEVICE VENTILATOR; STAT NO; TEMP CORR TO 98.6; ULNAR PULSE PRESENT; VENT SETTINGS PEEP5/PS10
--- NOTE | 2016-08-26 14:10 | EKG ---
Date Performed: 08/25/2016 Time Performed: 08:03:16 PTAGE: 89 years EKG: SINUS TACHYCARDIA Right axis deviation Right bundle branch block Low voltage Compared to pr ior tracing no significant change PREVIOUS TRACING : 03/15/2015 03.30 DOCTOR: Jorge Gautam Interpretating Date/Time 08/26/2016 14:09:49
[2016-08-26] MEDS: AZITHROMYCIN INJ 500 MG in SODIUM CHLOR 0.9% 250 ML INJ 250 ML IV SCH (16:00)
--- NOTE | 2016-08-26 19:36 | RADRPT ---
EXAM DATE/TIME: 08/26/2016 19:03 [place] COMPARISON: No previous studies available for comparison. INDICATIONS : Shortness of breath. Edema. MEDICAL HISTORY : Chronic obstructive pulmonary disease. Dementia. SURGICAL HISTORY : Bilateral hip replacements. ENCOUNTER: Subsequent ACUITY: 2 days PAIN SCORE: Non-responsive. LOCATION: Bilateral chest FINDINGS: Patchy mid and lower lung predominant air space opacities are again noted, not significantly changed. No effusion. No pneumothorax. Endotracheal tube, nasogastric tube has been removed. CONCLUSION: Instrumentation and nasogastric tube removal. Patchy bilateral airspace opacities not significantly c hanged. Rosas Duncan MD on August 26, 2016 at 19:33 Board Certified Radiologist. This report was verified electronically.
--- NOTE | 2016-08-26 20:14 | MB ---
cc: Bebo REES M.D. DATE OF CONSULTATION 08/26/16 REASON FOR CONSULTATION Respiratory failure, ventilator management. HISTORY OF PRESENT ILLNESS This is an 89-year-old female with a history of CHF, dementia and COPD who was brought to the emergency room at [facility] after being found hypoxic and in severe respiratory distress at a senior living. The patient does have a prior history of cardiomyopathy and recently has been in a senior living due to progressive dementia. She was placed on oxygen due to hypoxemia and hypercapnia. Upon arrival in the emergency room, her blood gases again demonstrated severe hypoxia with a pO2 of 36. The patient had to be intubated and placed on ventilator support and was given sedation and now on IV sedation but assisting the ventilator. Initially, she was on 100% FIO2 which has now been weaned down to under 60%. The patient is somewhat restless and attempts at weaning the ventilator have not been successful over the past 24 hours. There is no history of chest pain or fevers or chills or nausea, vomiting or aspiration. PAST HISTORY 1. Congestive heart failure 2. Cardiomyopathy, 3. History of COPD, 4. Chronic bronchitis 5. History of dementia 6. Depression and anxiety. PAST SURGICAL HISTORY Hip replacement bilaterally. ALLERGIES None were listed. FAMILY HISTORY Noncontributory. MEDICATIONS List was reviewed. REVIEW OF SYSTEMS Unable to obtain. She is on a ventilator. PHYSICAL EXAMINATION GENERAL: This is an averagely built elderly lady pale and intubated, tachypneic. VITAL SIGNS: Blood pressure 130/70, pulse is 100, respirations 24, temperature 99.2 HEENT: Head normocephalic. Pupils are reactive. Sclerae are injected. Throat is clear. NECK: Supple with mild venous distension was while lying flat. Trachea midline and no thyroid enlargement. CHEST: Equal movements with coarse wheezes scattered throughout both lung cerna. Prolonged expirations with occasional bibasilar crackles. HEART: Sounds are irregularly irregular S1-S2. No murmur. ABDOMEN: Soft, protuberant without masses, no organomegaly or tenderness. Bowel sounds are active. EXTREMITIES: Mild varicosities, decreased pulses. NEUROLOGIC: Reflexes are 1+. The patient does withdraw to stimuli. Babinski negative. RECTAL: Exam is deferred. IMPRESSION 1. Acute hypercapnic, hypoxemic respiratory failure. 2. Congestive heart failure. 3. Chronic obstructive pulmonary disease with acute exacerbation 4. Dementia 5. History of hypertension. PLAN The patient has been maintained on ventilator support. We will wean the FIO2 down to under 40%, nebulized DuoNeb solution added q.i.d. Continue with antibiotic therapy and IV Solu-Medrol 40 mg every 8 hours will be continued. A follow up chest x-ray to be obtained. A CTA that was done yesterday was reviewed and it showed no evidence of PE. There was evidence of extensive bronchiectasis and scarring with changes of emphysema as well. The patient will be kept sedated and a repeat chest x-ray done in the a.m. If her clinical condition has stabilized, we will place her on C-PAP and try extubation soon. Thank you, Dr. Sullivan, for this consultation. MD CELINA Galdamez/ /7:18 PM /8:07 PM
[2016-08-26] MEDS ORDERED: HALOPERIDOL LACTATE 5 MG/ML AMP IV SCH (21:15)
[2016-08-27] VITALS (18 sets, daily range): BP systolic 123–177; BP diastolic 73–94; PULSE 96–118; RESP 25–36; TEMP 96.8–98.8; O2SAT 89–98
[2016-08-27] MEDS: CHLORHEXIDINE GLUCONATE 2 % 1 PACK (2 CLOTHS) TOP SCH (03:27)
[2016-08-27] MEDS: RESP: ALBUTEROL 2.5 MG/IPRATROPIUM 0.5 MG NEB (SCH) INH ×6 (03:44→23:10)
[2016-08-27] MEDS: PIPERACIL-TAZO 3.375 GM PREMIX 50 ML IV SCH ×4 (04:45→21:09)
[2016-08-27] MEDS: methylPREDNISolone SOD SUCC 40 MG/1 ML VIAL IV PUSH SCH ×3 (04:45→21:08)
[2016-08-27] MEDS: SODIUM CHLORIDE 0.9% FLUSH 10 ML FLUSH IVF PRN ×3 (04:46→21:10)
[2016-08-27] MEDS: INSULIN NovoLIN REGULAR SUPPLEMENTAL SCALE SQ SCH ×4 (05:00→23:00)
[2016-08-27 06:48] LABS: AUTOMATED NEUTROPHIL # 15.5 TH/MM3 (1.8-7.7); BASOPHIL # 0.1 TH/MM3 (0-0.2); BASOPHIL % 0.3 % (0.0-2.0); HEMATOCRIT 36.9 % (35.0-46.0); LYMPH % 4.6 % (9.0-44.0); LYMPHOCYTE # 0.8 TH/MM3 (1.0-4.8); MEAN CELL VOLUME 84.9 FL (80.0-100.0); MEAN CORPUSCULAR HEMOGLOBIN 27.5 PG (27.0-34.0); MEAN CORPUSCULAR HGB CONC 32.4 % (32.0-36.0); MONO % 6.2 % (0.0-8.0); NEUT % 88.9 % (16.0-70.0); PLATELET COUNT 276 TH/MM3 (150-450); RED BLOOD COUNT 4.34 MIL/MM3 (4.00-5.30); RED CELL DISTRIBUTION WIDTH 14.2 % (11.6-17.2); WHITE BLOOD COUNT 17.4 TH/MM3 (4.0-11.0)
[2016-08-27 06:58] LABS: HEMO FLAGS AUTO DIFF
[2016-08-27 07:20] LABS: BICARBONATE 27.9 MEQ/L (21.0-32.0)
[2016-08-27 07:29] LABS: BANDS 23 % (0-6); METAMYELOCYTES 3 % (0-1); MYELOCYTES 10 % (0-0); NEUTROPHIL # MANUAL DIFF 14.8 TH/MM3 (1.8-7.7); PLASMA CELLS 2 % (0-0); PLATELET ESTIMATE SMEAR NORMAL (NORMAL); PLATELET MORPHOLOGY NORMAL (NORMAL); POLYS (SEG NEUTROPHILS) 49 % (16-70); SCAN/DIFF FINAL DIFF MANUAL; WBC DIFF SAMPLE 100
[2016-08-27 07:37] LABS: POTASSIUM 2.7 MEQ/L (3.5-5.1)
--- NOTE | 2016-08-27 07:38 | HHI.CCPN ---
Subjective Remarks/Hospital Course The patient is an 89-year-old female with a past medical history of ? CHF, COPD and dementia, who presented to the [facility] ED from a local nursing facility after she was found tachypneic, hypoxic and in respiratory distress. Upon arrival of the paramedics the patient was reported to have an O2 saturation in the 80s and she was subsequently placed on 100% non-rebreather en route to the ED. She is nonverbal. ABG was performed on room air which showed pH of 7.35, CO2 59, PAO2 36, bicarb 32, sats of 65%. Due to her respiratory failure she was subsequently intubated with etomidate, succinylcholine and placed on full mechanical ventilation. In the ER she was given Solu-Medrol 125 mg IV push, bronchodilator treatment and Lasix 40 mg IV push. A chest x ray showed cardiomegaly with mild CHF. Her laboratory data was significant for elevated BNP at 530 with a troponin 0.25. Also she has leukocytosis with a WBC of 13 associated with bandemia. The rest of the history is limited as the patient is intubated. 08/26 [employer] acute events overnight. Patient is sedated with Diprivan and intubated. Afebrile. CTA chest yesterday showed no PE. 08/27 Patient s/p extubation yesterday on 50% VM with good sats. Afebrile. Given Haldol 5mg IV x1 last night for agitation. Objective Vital Signs Date Time Temp Pulse Resp B/P Pulse Ox O2 Delivery O2 Flow Rate FiO2 08/27/16 06:00 117 08/27/16 04:00 97.1 32 94 08/27/16 00:00 123/73 08/26/16 19:49 Venturi Mask 6.00 50 Intake and Output 08/26/16 08/26/16 08/27/16 08:00 16:00 00:00 Intake Total 246 ml 158 ml 68 ml Output Total 200 ml 225 ml 200 ml Balance 46 ml -67 ml -132 ml Result Diagram: 08/27/16 0444 08/26/16 0359 Other Results Laboratory Tests Test 08/26/16 08/27/16 11:21 04:44 Blood Gas Puncture Site LT RADIAL Blood Gas Patient Temperature 98.6 Blood Gas HCO3 30 mmol/L Blood Gas Base Excess 4.8 mmol/L Blood Gas Oxygen Saturation 93 % Arterial Blood pH 7.39 Arterial Blood Partial 51 mmHg Pressure CO2 Arterial Blood Partial 78 mmHg Pressure O2 Arterial Blood Oxygen Content 17.2 Vol % Arterial Blood 1.0 % Carboxyhemoglobin Arterial Blood Methemoglobin 1.1 % Blood Gas Hemoglobin 13.2 G/DL Oxygen Delivery Device VENTILATOR Blood Gas Ventilator Setting PEEP5/PS10 Blood Gas Inspired Oxygen 40 % White Blood Count 17.4 TH/MM3 Red Blood Count 4.34 MIL/MM3 Hemoglobin 11.9 GM/DL Hematocrit 36.9 % Mean Corpuscular Volume 84.9 FL Mean Corpuscular Hemoglobin 27.5 PG Mean Corpuscular Hemoglobin 32.4 % Concent Red Cell Distribution Width 14.2 % Platelet Count 276 TH/MM3 Mean Platelet Volume 8.5 FL Neutrophils (%) (Auto) 88.9 % Lymphocytes (%) (Auto) 4.6 % Monocytes (%) (Auto) 6.2 % Eosinophils (%) (Auto) 0.0 % Basophils (%) (Auto) 0.3 % Neutrophils # (Auto) 15.5 TH/MM3 Lymphocytes # (Auto) 0.8 TH/MM3 Monocytes # (Auto) 1.1 TH/MM3 Eosinophils # (Auto) 0.0 TH/MM3 Basophils # (Auto) 0.1 TH/MM3 CBC Comment AUTO DIFF Differential Total Cells 100 Counted Neutrophils % (Manual) 49 % Band Neutrophils % 23 % Lymphocytes % 5 % Monocytes % 8 % Neutrophils # (Manual) 14.8 TH/MM3 Metamyelocytes 3 % Myelocytes 10 % Differential Comment FINAL DIFF MANUAL Plasma Cells 2 % Platelet Estimate NORMAL Platelet Morphology Comment NORMAL Red Cell Morphology Comment NORMAL Imaging Last Impressions Chest X-Ray 08/26/16 0000 Signed Impressions: Service Date/Time: Friday, August 26, 2016 19:03 - CONCLUSION: Instrumentation and nasogastric tube removal. Patchy bilateral airspace opacities not significantly changed. Rosas Duncan MD Head CT 08/25/16 0000 Signed Impressions: Service Date/Time: Thursday, August 25, 2016 11:44 - CONCLUSION: 1. Diffuse cerebral atrophy. 2. Diffuse periventricular and subcortical white matter small vessel ischemic changes as well as bilateral pontine small vessel ischemic changes. 3. Scattered old lacunar infarcts within the right cerebellar hemisphere. 4. No acute infarct, acute hemorrhage, mass effect or extraaxial fluid collections. 5. Minimal mucosal thickening within the left maxillary sinus. Wilner Smith MD CT Angiography 08/25/16 0000 Signed Impressions: Service Date/Time: Thursday, August 25, 2016 11:43 - CONCLUSION: 1. No pulmonary embolus identified. 2. Tubular bronchiectasis and diffuse reticular-nodular infiltrate. 3. Bibasal atelectasis. Dangelo Patricia MD Objective Remarks GENERAL: Patient is 89 yo lying in bed in no acute resp distress. SKIN: Warm and dry. HEAD: Normocephalic. EYES: No scleral icterus. No injection or drainage. NECK: Supple, trachea midline. No JVD or lymphadenopathy. CARDIOVASCULAR: Regular rate and rhythm without murmurs, gallops, or rubs. RESPIRATORY: Breath sounds equal bilaterally. No accessory muscle use. GASTROINTESTINAL: Abdomen soft, non-tender, nondistended. MUSCULOSKELETAL: No cyanosis, or edema. BACK: Nontender without obvious deformity. No CVA tenderness. Neuro: Awake A/P Assessment and Plan 1. Acute hypoxemic and hypercapnic respiratory failure. Extubated 08/26 2. COPD exacerbation. 3. CHF. 4. Elevated troponin. 5. Leukocytosis with bandemia. 6. History of dementia. Plan: Neuro: Monitor neuro status and avoid sedatives CT brain: Diffuse cerebral atrophy, no acute infarction, hemorrhage or mass effect. Pulm: Wean down oxygen as raiza and maintain sats > 92%. Bronchodilators, on Soluemderol 40mg Q8, Pulm is following- Dr. Fanny Joseph. CTA chest 08/25 no PE, bronchiectasis CV: Place on Lopressor 25mg Q12. Monitor HR and BP and maintain MAP>65 mmHg. Mild elevated trop ( trending down) echo showed EF 55-60% no RWMA : Monitor renal function, I's and O's, and electrolyte replacement per protocol. Will need K replacement today GI: On Protonix 40 mg IV daily for GI prophylaxis. Speech eval, diet per speech ID: Continue with abx( Zosyn/Azithromycin) Vanco x1 dose given 08/25 Follow up on Blood cx 08/25: NGTD strep pneumonia and Legionella urinary Ag is negative. Follow up on sputum cx. Endo: SSI with Accu-Chek q.6h. for glycemic control. GI prophylaxis with Protonix 40 mg daily and DVT prophylaxis with SCDs, and Eliquis 2.5 mg b.i.d. Level 3 Dereck Sullivan MD Aug 27, 2016 07:38
[2016-08-27] MEDS ORDERED: MAGNESIUM SULFATE INJ 4 GM in SODIUM CHLORIDE 0.9% INJ 92 ML IV PRN (07:45)
[2016-08-27] MEDS ORDERED: MAGNESIUM OXIDE 400 MG TAB PO PRN (07:45)
[2016-08-27] MEDS ORDERED: POTASSIUM CHLOR 20 MEQ PREMIX 100 ML IV PRN (07:45)
[2016-08-27] MEDS ORDERED: POTASSIUM PHOSPHATE MONOBASIC 500 MG TAB PO PRN (07:45)
[2016-08-27] MEDS ORDERED: POTASSIUM CHLOR 40 MEQ PREMIX 100 ML IV PRN ×2 (07:45)
[2016-08-27] MEDS ORDERED: POTASSIUM PHOSPHATE MONOBASIC 500 MG TAB PO/TUBE PRN (07:45)
[2016-08-27] MEDS ORDERED: POTASSIUM CHLORIDE 25 MEQ EFFERVESCENT TAB PO PRN (07:45)
[2016-08-27] MEDS ORDERED: MAGNESIUM SULFATE INJ 2 GM in SODIUM CHLORIDE 0.9% INJ 96 ML IV PRN (07:45)
[2016-08-27] MEDS ORDERED: SODIUM PHOSPHATE INJ 30 MMOL in SODIUM CHLOR 0.9% 250 ML INJ 240 ML IV PRN (07:45)
[2016-08-27] MEDS ORDERED: POTASSIUM PHOSPHATE INJ 30 MMOL in SODIUM CHLOR 0.9% 250 ML INJ 250 ML IV PRN (07:45)
[2016-08-27] MEDS: PANTOPRAZOLE SODIUM 40 MG VIAL IV SCH (08:23)
[2016-08-27] MEDS: POTASSIUM CHLOR 20 MEQ PREMIX 100 ML IV PRN ×2 (08:24→11:04)
[2016-08-27] MEDS: APIXABAN 2.5 MG TABLET PO SCH ×2 (08:41→21:08)
[2016-08-27] MEDS: DOCUSATE SODIUM 50 MG/SENNA 8.6 MG TAB PO SCH ×2 (08:41→21:08)
[2016-08-27] MEDS: METOPROLOL TARTRATE 25 MG TAB PO SCH ×2 (08:41→21:08)
[2016-08-27 08:44] LABS: STAT YES
[2016-08-27] MEDS: AZITHROMYCIN INJ 500 MG in SODIUM CHLOR 0.9% 250 ML INJ 250 ML IV SCH (15:42)
--- NOTE | 2016-08-27 18:53 | HHI.PR ---
Subjective Remarks She was extubated last PM. Now on N/C at 4 L. Good output. Confused and mildly SOB. Objective Vital Signs Date Time Temp Pulse Resp B/P Pulse Ox O2 Delivery O2 Flow Rate FiO2 08/27/16 18:00 113 08/27/16 16:00 98.5 118 30 156/84 89 08/27/16 16:00 118 08/27/16 15:00 113 34 89 08/27/16 14:00 109 08/27/16 14:00 109 30 165/94 90 08/27/16 13:00 109 31 91 08/27/16 12:00 107 08/27/16 12:00 98.8 107 28 171/86 92 08/27/16 10:00 105 08/27/16 08:54 92 Nasal Cannula 3.00 08/27/16 08:00 109 08/27/16 08:00 98.7 109 27 177/86 98 08/27/16 07:55 95 Venturi Mask 50 08/27/16 06:00 117 08/27/16 04:00 114 08/27/16 04:00 97.1 114 32 94 08/27/16 02:00 115 08/27/16 00:00 96.8 116 25 123/73 92 08/27/16 00:00 116 08/26/16 22:00 91 08/26/16 20:00 98.7 113 26 119/83 95 08/26/16 20:00 115 08/26/16 19:49 90 Venturi Mask 6.00 50 I/O 08/26/16 08/26/16 08/26/16 08/27/16 08/27/16 08/27/16 07:00 15:00 23:00 07:00 15:00 23:00 Intake Total 246 ml 158 ml 68 ml 52 ml 851 ml Output Total 200 ml 225 ml 200 ml 250 ml 350 ml Balance 46 ml -67 ml -132 ml -198 ml 501 ml Intake Oral 0 ml 0 ml 0 ml 350 ml IV Total 246 ml 158 ml 68 ml 52 ml 501 ml Output Urine Total 200 ml 225 ml 200 ml 250 ml 350 ml # Bowel Movements 0 0 0 0 1 Result Diagram: 08/27/16 0444 08/27/16 044 Objective Remarks GENERAL: This is an averagely built elderly lady pale and in no distress HEENT: Head normocephalic. Pupils are reactive. Sclerae are clear Throat is clear. NECK: Supple with mild venous distension . Trachea midline and no thyroid enlargement. CHEST: Equal movements with coarse wheezes scattered throughout both lung cerna. Prolonged expirations with occasional bibasilar crackles. HEART: Sounds are irregularly irregular S1-S2. No murmur. ABDOMEN: Soft, protuberant without masses, no organomegaly or tenderness. Bowel sounds are active. EXTREMITIES: Mild varicosities, decreased pulses. NEUROLOGIC: Reflexes are 1+. No deficits. Babinski negative. RECTAL: Exam is deferred. Assessment and Plan Assessment and Plan IMPRESSION 1. Acute hypercapnic, hypoxemic respiratory failure. 2. Congestive heart failure. 3. Chronic obstructive pulmonary disease with acute exacerbation 4. Dementia 5. History of hypertension. Plan : 1. Wean O2 to 3L 2. Cont Antibiotics, Zithromax 3. Nebs qid , duoneb 4. Solumedrol 40 mg IV q8h. 5. Chest Xray ,BMP in am 6. Bipap at HS 12/5 , 30% FIO2 if sats drop <90. Bebo Floyd MD Aug 27, 2016 18:53
[2016-08-27 22:36] LABS: ALKALINE PHOSPHATASE 79 U/L (45-117); ALT (GPT) 27 U/L (10-53); ANION GAP 10 MEQ/L (5-15); AST (GOT) 26 U/L (15-37); BLOOD UREA NITROGEN 36 MG/DL (7-18); CHLORIDE 108 MEQ/L (98-107); GLOMERULAR FILTRATION RATE 78 ML/MIN (>89); POTASSIUM 4.3 MEQ/L (3.5-5.1); SODIUM (NA) 146 MEQ/L (136-145); TOTAL BILIRUBIN ADULT 0.5 MG/DL (0.2-1.0)
[2016-08-28] VITALS (40 sets, daily range): BP systolic 121–180; BP diastolic 60–113; PULSE 90–179; RESP 23–41; TEMP 97.2–99.2; O2SAT 77–100
[2016-08-28] MEDS: hydrALAZINE HCL 20 MG/ML VIAL IV PUSH PRN ×2 (00:18→08:31)
[2016-08-28] MEDS: CHLORHEXIDINE GLUCONATE 2 % 1 PACK (2 CLOTHS) TOP SCH (01:48)
[2016-08-28] MEDS: PIPERACIL-TAZO 3.375 GM PREMIX 50 ML IV SCH ×3 (04:43→17:45)
[2016-08-28] MEDS: INSULIN NovoLIN REGULAR SUPPLEMENTAL SCALE SQ SCH ×3 (04:43→20:52)
[2016-08-28] MEDS: methylPREDNISolone SOD SUCC 40 MG/1 ML VIAL IV PUSH SCH ×2 (04:43→20:47)
[2016-08-28 06:22] LABS: AUTOMATED NEUTROPHIL # 23.8 TH/MM3 (1.8-7.7); BASOPHIL # 0.1 TH/MM3 (0-0.2); BASOPHIL % 0.2 % (0.0-2.0); HEMATOCRIT 41.3 % (35.0-46.0); LYMPH % 5.9 % (9.0-44.0); LYMPHOCYTE # 1.6 TH/MM3 (1.0-4.8); MEAN CELL VOLUME 85.3 FL (80.0-100.0); MEAN CORPUSCULAR HEMOGLOBIN 26.9 PG (27.0-34.0); MEAN CORPUSCULAR HGB CONC 31.6 % (32.0-36.0); MONO % 4.8 % (0.0-8.0); NEUT % 89.1 % (16.0-70.0); PLATELET COUNT 281 TH/MM3 (150-450); RED BLOOD COUNT 4.84 MIL/MM3 (4.00-5.30); RED CELL DISTRIBUTION WIDTH 14.5 % (11.6-17.2); WHITE BLOOD COUNT 26.7 TH/MM3 (4.0-11.0)
[2016-08-28 06:23] LABS: HEMO FLAGS AUTO DIFF
[2016-08-28 06:34] LABS: BICARBONATE 30.5 MEQ/L (21.0-32.0); POTASSIUM 3.9 MEQ/L (3.5-5.1)
[2016-08-28] MEDS: RESP: ALBUTEROL 2.5 MG/IPRATROPIUM 0.5 MG NEB (SCH) INH ×5 (07:41→22:44)
[2016-08-28 07:50] LABS: BANDS 14 % (0-6); CORRECTED NUCLEATED RBC 1 /100 WBC (0-0); METAMYELOCYTES 5 % (0-1); MYELOCYTES 2 % (0-0); NEUTROPHIL # MANUAL DIFF 24.3 TH/MM3 (1.8-7.7); PLATELET ESTIMATE SMEAR NORMAL (NORMAL); PLATELET MORPHOLOGY NORMAL (NORMAL); POLYS (SEG NEUTROPHILS) 70 % (16-70); SCAN/DIFF FINAL DIFF MANUAL; WBC DIFF SAMPLE 100
[2016-08-28] MEDS: DOCUSATE SODIUM 50 MG/SENNA 8.6 MG TAB PO SCH ×2 (08:31→20:48)
[2016-08-28] MEDS: APIXABAN 2.5 MG TABLET PO SCH ×2 (08:31→20:48)
[2016-08-28] MEDS: METOPROLOL TARTRATE 25 MG TAB PO SCH ×2 (08:31→20:47)
[2016-08-28] MEDS: PANTOPRAZOLE SODIUM 40 MG VIAL IV SCH (08:31)
--- NOTE | 2016-08-28 12:40 | HHI.CCPN ---
Subjective Remarks/Hospital Course The patient is an 89-year-old female with a past medical history of ? CHF, COPD and dementia, who presented to the [facility] ED from a local nursing facility after she was found tachypneic, hypoxic and in respiratory distress. Upon arrival of the paramedics the patient was reported to have an O2 saturation in the 80s and she was subsequently placed on 100% non-rebreather en route to the ED. She is nonverbal. ABG was performed on room air which showed pH of 7.35, CO2 59, PAO2 36, bicarb 32, sats of 65%. Due to her respiratory failure she was subsequently intubated with etomidate, succinylcholine and placed on full mechanical ventilation. In the ER she was given Solu-Medrol 125 mg IV push, bronchodilator treatment and Lasix 40 mg IV push. A chest x ray showed cardiomegaly with mild CHF. Her laboratory data was significant for elevated BNP at 530 with a troponin 0.25. Also she has leukocytosis with a WBC of 13 associated with bandemia. The rest of the history is limited as the patient is intubated. 08/26 Maintenance Repairer acute events overnight. Patient is sedated with Diprivan and intubated. Afebrile. CTA chest yesterday showed no PE. 08/27 Patient s/p extubation yesterday on 50% VM with good sats. Afebrile. Given Haldol 5mg IV x1 last night for agitation. Subjective 08/28: Afebrile. Currently nasal cannula 3 L. Sinus tachycardia. Very anxious. Requesting diet. Objective Vital Signs Date Time Temp Pulse Resp B/P Pulse Ox O2 Delivery O2 Flow Rate FiO2 08/28/16 07:42 93 Nasal Cannula 4.00 08/28/16 06:00 96 08/28/16 04:00 97.2 39 08/28/16 00:00 177/110 08/27/16 07:55 50 Intake and Output 08/27/16 08/27/16 08/28/16 08:00 16:00 00:00 Intake Total 52 ml 851 ml 436 ml Output Total 250 ml 350 ml 250 ml Balance -198 ml 501 ml 186 ml Result Diagram: 08/28/16 0531 08/28/16 0531 Other Results Microbiology Date/Time Procedure Status Source Growth 08/26/16 09:30 Gram Stain - Final Complete Sputum Endotracheal 08/26/16 09:30 Sputum Culture - Final Complete Sputum Endotracheal RARE GROWTH NORMAL RESPIRATORY [facility] Imaging Last Impressions Chest X-Ray 08/26/16 0000 Signed Impressions: Service Date/Time: Friday, August 26, 2016 19:03 - CONCLUSION: Instrumentation and nasogastric tube removal. Patchy bilateral airspace opacities not significantly changed. Rosas Duncan MD Head CT 08/25/16 0000 Signed Impressions: Service Date/Time: Thursday, August 25, 2016 11:44 - CONCLUSION: 1. Diffuse cerebral atrophy. 2. Diffuse periventricular and subcortical white matter small vessel ischemic changes as well as bilateral pontine small vessel ischemic changes. 3. Scattered old lacunar infarcts within the right cerebellar hemisphere. 4. No acute infarct, acute hemorrhage, mass effect or extraaxial fluid collections. 5. Minimal mucosal thickening within the left maxillary sinus. Wilner Smith MD CT Angiography 08/25/16 0000 Signed Impressions: Service Date/Time: Thursday, August 25, 2016 11:43 - CONCLUSION: 1. No pulmonary embolus identified. 2. Tubular bronchiectasis and diffuse reticular-nodular infiltrate. 3. Bibasal atelectasis. Dangelo Patricia MD Objective Remarks GENERAL: Patient is 89 yo lying in bed in no acute resp distress. SKIN: Warm and dry. Ecchymoses noted over right wrist, left upper extremity HEAD: Normocephalic. EYES: No scleral icterus. No injection or drainage. NECK: Supple, trachea midline. No JVD or lymphadenopathy. CARDIOVASCULAR: Tachycardic, RR. S1, S2 no S4. RESPIRATORY: Positive is between extra wheeze. Few crackles appreciated in bases bilaterally. GASTROINTESTINAL: Abdomen soft, non-tender, nondistended. Hypoactive bowel sounds are appreciated MUSCULOSKELETAL: No significant edema. BACK: Nontender without obvious deformity. No CVA tenderness. Neuro: Awake and alert and following commands. Confused. A/P Assessment and Plan 1. Acute hypoxemic and hypercapnic respiratory failure. Extubated 08/26 2. COPD exacerbation. 3. CHF. 4. Elevated troponin. 5. Leukocytosis with bandemia. Plan: Neuro/Psych: Dementia disorder NOS Monitor neuro status and avoid sedatives CT brain: Diffuse cerebral atrophy, no acute infarction, hemorrhage or mass effect. Start Aricept 5 mg by mouth at night Pulm: Acute hypercapnic hypoxemic respiratory failure COPD exacerbation Wean down oxygen as raiza and maintain sats > 92%. Currently on 3 L Due nebs every 4 hours and as needed for dyspnea Solumederol 40mg Q8, Pulm is following- Dr. Floyd. CTA chest 08/25 no PE, bronchiectasis CV: Elevated troponin 0.25 Hypertension History of chronic diastolic CHF Right bundle branch block/right axis deviation Place on Lopressor 25mg Q12. Home doses 50 mg twice a day Monitor HR and BP and maintain MAP>65 mmHg. 2D echo showed EF 55-60% no RWMA. EFRAIN 33 mmHg. Trace TR /renal: Monitor renal function, I's and O's, and electrolyte replacement per protocol. GI: Hypoalbuminemia On Protonix 40 mg IV daily for GI prophylaxis. Speech eval, diet per speech ID: Continue with abx( Zosyn/Azithromycin) Vanco x1 dose given 08/25 102 coag-negative staph Blood cx 08/25: Likely contaminant strep pneumonia and Legionella urinary Ag is negative. 08/26 - no growth sputum cx. Endo: Hyperglycemia -steroid plus acute critical illness SSI with Accu-Chek q.6h. for glycemic control.\ Heme: Leukocytosis Chronic Eliquis use Follow CBC daily. Monitor trends GI prophylaxis with Protonix 40 mg daily and DVT prophylaxis with SCDs, and Eliquis 2.5 mg b.i.d. Level 3 Rusty Hall MD Aug 28, 2016 12:40
[2016-08-28] MEDS: AZITHROMYCIN INJ 500 MG in SODIUM CHLOR 0.9% 250 ML INJ 250 ML IV SCH (17:45)
--- NOTE | 2016-08-28 18:00 | HHI.PR ---
Subjective Remarks Awake and trying to get OOB. Anxious. Now on N/C at 4 L. Good output. Confused and mildly SOB. Objective Vital Signs Date Time Temp Pulse Resp B/P Pulse Ox O2 Delivery O2 Flow Rate FiO2 08/28/16 16:00 125 08/28/16 16:00 98.0 125 31 146/92 85 08/28/16 15:40 103 30 161/89 98 08/28/16 15:20 103 26 136/72 93 08/28/16 15:00 102 25 121/71 94 08/28/16 14:40 101 23 130/73 93 08/28/16 14:20 100 100 08/28/16 14:20 108 29 135/76 92 08/28/16 14:00 105 08/28/16 14:00 159 24 134/71 82 08/28/16 13:42 152 28 148/73 90 08/28/16 13:41 141 32 135/113 91 08/28/16 13:20 112 36 136/71 90 08/28/16 13:01 131 37 144/67 92 08/28/16 13:00 133 37 91 08/28/16 12:41 117 33 149/70 87 08/28/16 12:20 112 31 163/74 90 08/28/16 12:00 108 08/28/16 12:00 97.8 108 30 159/72 93 08/28/16 11:40 100 37 157/74 97 08/28/16 11:20 103 32 146/68 91 08/28/16 11:00 104 31 135/77 91 08/28/16 10:40 101 30 137/74 93 08/28/16 10:20 100 26 134/78 93 08/28/16 10:00 104 28 125/92 94 08/28/16 10:00 104 08/28/16 09:40 103 24 129/60 93 08/28/16 09:20 104 30 123/70 92 08/28/16 09:00 112 29 141/61 89 08/28/16 08:40 179 36 143/65 89 08/28/16 08:38 118 33 136/69 90 08/28/16 08:20 123 31 180/85 92 08/28/16 08:00 97.6 105 29 169/95 98 08/28/16 08:00 105 08/28/16 07:42 93 Nasal Cannula 4.00 08/28/16 07:40 99 35 172/94 92 08/28/16 07:20 97 27 164/91 77 08/28/16 07:00 97 32 159/85 98 08/28/16 06:00 96 08/28/16 04:00 97.2 111 39 84 08/28/16 04:00 111 08/28/16 04:00 97.2 111 39 84 08/28/16 02:00 111 08/28/16 00:00 99.2 98 37 177/110 91 08/28/16 00:00 98 08/27/16 22:00 96 08/27/16 21:31 94 Nasal Cannula 6.00 08/27/16 20:00 98.1 110 36 160/89 91 08/27/16 20:00 110 08/27/16 19:47 92 Nasal Cannula 4.00 08/27/16 18:00 113 I/O 08/27/16 08/27/16 08/27/16 08/28/16 08/28/16 08/28/16 07:00 15:00 23:00 07:00 15:00 23:00 Intake Total 52 ml 851 ml 436 ml 320 ml Output Total 250 ml 350 ml 250 ml 800 ml Balance -198 ml 501 ml 186 ml -480 ml Intake Oral 0 ml 350 ml 120 ml 120 ml IV Total 52 ml 501 ml 316 ml 200 ml Output Urine Total 250 ml 350 ml 250 ml 800 ml # Bowel Movements 0 1 1 3 Result Diagram: 08/28/16 0531 08/28/16 0531 Objective Remarks GENERAL: This is an averagely built elderly lady pale and in mild distress HEENT: Head normocephalic. Pupils are reactive. Sclerae are clear Throat is clear. NECK: Supple with mild venous distension . Trachea midline and no thyroid enlargement. CHEST: Equal movements with coarse wheezes scattered throughout both lung cerna. Prolonged expirations with occasional bibasilar crackles. HEART: Sounds are irregularly irregular S1-S2. No murmur. ABDOMEN: Soft, protuberant without masses, no organomegaly or tenderness. Bowel sounds are active. EXTREMITIES: decreased pulses. NEUROLOGIC: Reflexes are 1+. No deficits. Confused. RECTAL: Exam is deferred. Assessment and Plan Assessment and Plan IMPRESSION 1. Acute hypercapnic, hypoxemic respiratory failure. 2. Congestive heart failure. 3. Chronic obstructive pulmonary disease with acute exacerbation 4. Dementia 5. History of hypertension. Plan : 1. Wean O2 to 4L 2. Cont Antibiotics, Zithromax 3. Nebs qid , duoneb 4. Solumedrol 40 mg IV q12h. 5. CBC ,BMP in am 6. Bipap at HS 12/5 , 30% FIO2 if sats drop <90. 7. Transfer to Floor Bebo Floyd MD Aug 28, 2016 18:00
[2016-08-28] MEDS: DONEPEZIL HCL 5 MG TAB PO SCH (20:48)
[2016-08-29] VITALS (16 sets, daily range): BP systolic 128–172; BP diastolic 61–99; PULSE 76–106; RESP 18–34; TEMP 97.3–98.3; O2SAT 89–97
[2016-08-29] MEDS: PIPERACIL-TAZO 3.375 GM PREMIX 50 ML IV SCH ×4 (00:44→17:48)
[2016-08-29] MEDS: CHLORHEXIDINE GLUCONATE 2 % 1 PACK (2 CLOTHS) TOP SCH (04:00)
--- NOTE | 2016-08-29 05:37 | RADRPT ---
EXAM DATE/TIME: 08/29/2016 03:53 [facility] COMPARISON: CHEST SINGLE AP, March 15, 2015, 4:16. CHEST SINGLE AP, August 26, 2016, 19:03. INDICATIONS : Shortness of breath. MEDICAL HISTORY : Chronic obstructive pulmonary disease. Dementia. SURGICAL HISTORY : None. ENCOUNTER: Subsequent ACUITY: 4 - 6 days PAIN SCORE: Non-responsive. LOCATION: chest FINDINGS: The cardiac silhouette is enlarged in transverse diameter. The aortic knob is prominent with tortuosi ty of the descending thoracic aorta. There is prominence of the central pulmonary vasculature with in distinct vascular margins compatible with vascular congestion but no evidence of overt failure. Small bilateral pleural effusions are identified. CONCLUSION: 1. Cardiomegaly and findings of vascular congestion without overt failure. There has been no signific ant change when compared to the prior exam. Merlin Tuttle MD on August 29, 2016 at 5:35 Board Certified Radiologist. This report was verified electronically.
[2016-08-29 07:00] LABS: AUTOMATED NEUTROPHIL # 18.7 TH/MM3 (1.8-7.7); BASOPHIL % 0.2 % (0.0-2.0); EOSINOPHIL % 0.1 % (0.0-4.0); HEMATOCRIT 40.5 % (35.0-46.0); LYMPH % 4.5 % (9.0-44.0); LYMPHOCYTE # 0.9 TH/MM3 (1.0-4.8); MEAN CELL VOLUME 84.8 FL (80.0-100.0); MEAN CORPUSCULAR HEMOGLOBIN 27.5 PG (27.0-34.0); MEAN CORPUSCULAR HGB CONC 32.5 % (32.0-36.0); MONO % 3.4 % (0.0-8.0); NEUT % 91.8 % (16.0-70.0); PLATELET COUNT 250 TH/MM3 (150-450); RED BLOOD COUNT 4.78 MIL/MM3 (4.00-5.30); RED CELL DISTRIBUTION WIDTH 14.6 % (11.6-17.2); WHITE BLOOD COUNT 20.4 TH/MM3 (4.0-11.0)
[2016-08-29] MEDS: INSULIN NovoLIN REGULAR SUPPLEMENTAL SCALE SQ SCH ×4 (07:00→21:00)
[2016-08-29 07:10] LABS: HEMO FLAGS AUTO DIFF
[2016-08-29 07:28] LABS: ALT (GPT) 54 U/L (10-53); ANION GAP 5 MEQ/L (5-15); AST (GOT) 50 U/L (15-37); BICARBONATE 34.7 MEQ/L (21.0-32.0); BLOOD UREA NITROGEN 26 MG/DL (7-18); CHLORIDE 108 MEQ/L (98-107); GLOMERULAR FILTRATION RATE 84 ML/MIN (>89); MAGNESIUM 2.7 MG/DL (1.5-2.5); POTASSIUM 3.9 MEQ/L (3.5-5.1); SODIUM (NA) 148 MEQ/L (136-145)
[2016-08-29 07:30] LABS: TOTAL BILIRUBIN ADULT 0.6 MG/DL (0.2-1.0)
[2016-08-29 07:31] LABS: ALKALINE PHOSPHATASE 76 U/L (45-117)
[2016-08-29 08:22] LABS: BANDS 2 % (0-6); METAMYELOCYTES 3 % (0-1); NEUTROPHIL # MANUAL DIFF 19.6 TH/MM3 (1.8-7.7); POLYS (SEG NEUTROPHILS) 91 % (16-70); WBC DIFF SAMPLE 100
[2016-08-29 08:25] LABS: PLATELET ESTIMATE SMEAR NORMAL (NORMAL); PLATELET MORPHOLOGY NORMAL (NORMAL)
[2016-08-29] MEDS: RESP: ALBUTEROL 2.5 MG/IPRATROPIUM 0.5 MG NEB (SCH) INH ×5 (08:25→23:33)
[2016-08-29 08:27] LABS: SCAN/DIFF FINAL DIFF MANUAL
--- NOTE | 2016-08-29 08:57 | HHI.CCPN ---
Subjective Remarks/Hospital Course The patient is an 89-year-old female with a past medical history of ? CHF, COPD and dementia, who presented to the [facility] ED from a local nursing facility after she was found tachypneic, hypoxic and in respiratory distress. Upon arrival of the paramedics the patient was reported to have an O2 saturation in the 80s and she was subsequently placed on 100% non-rebreather en route to the ED. She is nonverbal. ABG was performed on room air which showed pH of 7.35, CO2 59, PAO2 36, bicarb 32, sats of 65%. Due to her respiratory failure she was subsequently intubated with etomidate, succinylcholine and placed on full mechanical ventilation. In the ER she was given Solu-Medrol 125 mg IV push, bronchodilator treatment and Lasix 40 mg IV push. A chest x ray showed cardiomegaly with mild CHF. Her laboratory data was significant for elevated BNP at 530 with a troponin 0.25. Also she has leukocytosis with a WBC of 13 associated with bandemia. The rest of the history is limited as the patient is intubated. 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 Patient is sedated with Diprivan and intubated. Afebrile. CTA chest yesterday showed no PE. 08/27 Patient s/p extubation yesterday on 50% VM with good sats. Afebrile. Given Haldol 5mg IV x1 last night for agitation. 08/28: Afebrile. Currently nasal cannula 3 L. Sinus tachycardia. Very anxious. Requesting diet. Subjective 08/29: Currently on 3 L nasal cannula. Off BiPAP greater than 24 hours. Denies dyspnea, chest pain or breath. Stating desired to go home. Objective Vital Signs Date Time Temp Pulse Resp B/P Pulse Ox O2 Delivery O2 Flow Rate FiO2 08/29/16 08:26 89 Nasal Cannula 3.00 08/29/16 06:00 80 08/29/16 04:00 24 150/70 08/29/16 00:00 98.3 08/28/16 14:20 100 Intake and Output 08/28/16 08/28/16 08/29/16 08:00 16:00 00:00 Intake Total 320 ml 553 ml Output Total 800 ml 250 ml Balance -480 ml 303 ml Result Diagram: 08/29/16 0539 08/29/16 0559 Other Results Microbiology Date/Time Procedure Status Source Growth 08/26/16 09:30 Gram Stain - Final Complete Sputum Endotracheal 08/26/16 09:30 Sputum Culture - Final Complete Sputum Endotracheal RARE GROWTH NORMAL RESPIRATORY [facility] 08/25/16 09:50 Legionella Antigen - Final Complete Urine Catheterized Urine PRESUMPTIVE NEGATIVE FOR LEGIONELLA P... 08/25/16 09:50 Streptococcus pneumoniae Antigen (M - Final Complete Urine Catheterized Urine PRESUMPTIVE NEGATIVE FOR STREPTOCOCCU... 08/25/16 08:47 Aerobic Blood Culture - Preliminary Resulted Blood Peripheral NO GROWTH IN 3 DAYS 08/25/16 08:47 Anaerobic Blood Culture - Preliminary Resulted Blood Peripheral NO GROWTH IN 3 DAYS Imaging Last Impressions Chest X-Ray 08/29/16 0600 Signed Impressions: Service Date/Time: Monday, August 29, 2016 03:53 - CONCLUSION: 1. Cardiomegaly and findings of vascular congestion without overt failure. There has been no significant change when compared to the prior exam. Merlin Tuttle MD Head CT 08/25/16 0000 Signed Impressions: Service Date/Time: Thursday, August 25, 2016 11:44 - CONCLUSION: 1. Diffuse cerebral atrophy. 2. Diffuse periventricular and subcortical white matter small vessel ischemic changes as well as bilateral pontine small vessel ischemic changes. 3. Scattered old lacunar infarcts within the right cerebellar hemisphere. 4. No acute infarct, acute hemorrhage, mass effect or extraaxial fluid collections. 5. Minimal mucosal thickening within the left maxillary sinus. Wilner Smith MD CT Angiography 08/25/16 0000 Signed Impressions: Service Date/Time: Thursday, August 25, 2016 11:43 - CONCLUSION: 1. No pulmonary embolus identified. 2. Tubular bronchiectasis and diffuse reticular-nodular infiltrate. 3. Bibasal atelectasis. Dangelo Patricia MD Objective Remarks GENERAL: Patient is 89 yo lying in bed in no acute resp distress on nasal cannula. SKIN: Warm and dry. Ecchymoses noted over right wrist, left upper extremity HEAD: Normocephalic. EYES: No scleral icterus. No injection or drainage. NECK: Supple, trachea midline. No JVD or lymphadenopathy. CARDIOVASCULAR: Tachycardic, RR. S1, S2 no S4. RESPIRATORY: Positive end expiratory wheeze. Few crackles appreciated in bases bilaterally. GASTROINTESTINAL: Abdomen soft, non-tender, nondistended. Hypoactive bowel sounds are appreciated MUSCULOSKELETAL: No significant edema. BACK: Nontender without obvious deformity. No CVA tenderness. Neuro: Awake and alert and following commands. Less confused today. A/P Assessment and Plan Neuro/Psych: Dementia disorder NOS Monitor neuro status and avoid sedatives CT brain: Diffuse cerebral atrophy, no acute infarction, hemorrhage or mass effect. Start Aricept 5 mg by mouth at night Pulm: Acute hypercapnic hypoxemic respiratory failure COPD exacerbation Wean down oxygen as raiza and maintain sats > 92%. Currently on 3 L Due nebs every 4 hours and as needed for dyspnea Solumederol 40mg Q12 Pulm is following- Dr. Floyd. CTA chest 08/25 no PE, bronchiectasis CV: Elevated troponin 0.25 Hypertension History of chronic diastolic CHF Right bundle branch block/right axis deviation Place on Lopressor 25mg Q12. Home doses 50 mg twice a day Monitor HR and BP and maintain MAP>65 mmHg. 2D echo showed EF 55-60% no RWMA. EFRAIN 33 mmHg. Trace TR /renal: Hypernatremia Hyper-magnesium Monitor renal function, I's and O's, and electrolyte replacement per protocol. GI: Hypoalbuminemia On Protonix 40 mg IV daily for GI prophylaxis. Speech eval, diet per speech ID: Continue with abx( Zosyn/Azithromycin) Vanco x1 dose given 08/25 102 coag-negative staph Blood cx 08/25: Likely contaminant strep pneumonia and Legionella urinary Ag is negative. 08/26 - no growth sputum cx. Endo: Hyperglycemia -steroid plus acute critical illness SSI with Accu-Chek q.6h. for glycemic control.\ Heme: Leukocytosis Chronic Eliquis use Follow CBC daily. Monitor trends GI prophylaxis with Protonix 40 mg daily and DVT prophylaxis with SCDs, and Eliquis 2.5 mg b.i.d. Level 2 Rusty Hall MD Aug 29, 2016 08:56
[2016-08-29] MEDS: PANTOPRAZOLE SODIUM 40 MG VIAL IV SCH (09:13)
[2016-08-29] MEDS: methylPREDNISolone SOD SUCC 40 MG/1 ML VIAL IV PUSH SCH (09:13)
[2016-08-29] MEDS: APIXABAN 2.5 MG TABLET PO SCH ×2 (09:13→21:51)
[2016-08-29] MEDS: DOCUSATE SODIUM 50 MG/SENNA 8.6 MG TAB PO SCH ×2 (09:13→21:50)
[2016-08-29] MEDS: METOPROLOL TARTRATE 25 MG TAB PO SCH ×2 (09:13→21:50)
[2016-08-29] MEDS: SODIUM CHLORIDE 0.9% FLUSH 10 ML FLUSH IVF PRN (09:14)
[2016-08-29] MEDS: hydrALAZINE HCL 20 MG/ML VIAL IV PUSH PRN (10:44)
[2016-08-29] MEDS ORDERED: HALOPERIDOL LACTATE 5 MG/ML AMP IM PRN (12:00)
--- NOTE | 2016-08-29 12:32 | HHI.PR ---
Subjective Remarks Awake and cooperative today. Anxious. Now on N/C at 4 L. Good output. Confused and not SOB. Objective Vital Signs Date Time Temp Pulse Resp B/P Pulse Ox O2 Delivery O2 Flow Rate FiO2 08/29/16 12:00 92 08/29/16 10:00 105 08/29/16 08:26 89 Nasal Cannula 3.00 08/29/16 08:00 85 08/29/16 06:00 80 08/29/16 04:00 76 24 150/70 97 08/29/16 04:00 83 08/29/16 02:00 76 08/29/16 00:00 91 08/29/16 00:00 98.3 96 34 93 08/28/16 22:00 90 08/28/16 20:00 109 08/28/16 20:00 97.8 109 41 168/85 94 08/28/16 19:51 92 Nasal Cannula 6.00 08/28/16 18:00 106 08/28/16 16:00 125 08/28/16 16:00 98.0 125 31 146/92 85 08/28/16 15:40 103 30 161/89 98 08/28/16 15:20 103 26 136/72 93 08/28/16 15:00 102 25 121/71 94 08/28/16 14:40 101 23 130/73 93 08/28/16 14:20 100 100 08/28/16 14:20 108 29 135/76 92 08/28/16 14:00 105 08/28/16 14:00 159 24 134/71 82 08/28/16 13:42 152 28 148/73 90 08/28/16 13:41 141 32 135/113 91 08/28/16 13:20 112 36 136/71 90 08/28/16 13:01 131 37 144/67 92 08/28/16 13:00 133 37 91 08/28/16 12:41 117 33 149/70 87 I/O 08/28/16 08/28/16 08/28/16 08/29/16 08/29/16 08/29/16 07:00 15:00 23:00 07:00 15:00 23:00 Intake Total 320 ml 553 ml 350 ml Output Total 800 ml 250 ml 350 ml Balance -480 ml 303 ml 0 ml Intake Oral 120 ml 240 ml 240 ml IV Total 200 ml 313 ml 110 ml Output Urine Total 800 ml 250 ml 350 ml # Bowel Movements 3 1 Result Diagram: 08/29/16 0539 08/29/16 0559 Objective Remarks GENERAL: This is an averagely built elderly lady pale and in no distress HEENT: Head normocephalic. Pupils are reactive. Sclerae are clear Throat is clear. NECK: Supple with no venous distension . Trachea midline and no thyroid enlargement. CHEST: Equal movements with coarse wheezes scattered . Prolonged expirations with occasional bibasilar crackles. HEART: Sounds are irregularly irregular S1-S2. No murmur. ABDOMEN: Soft, protuberant without masses, no organomegaly or tenderness. Bowel sounds are active. EXTREMITIES: decreased pulses. NEUROLOGIC: Reflexes are 1+. No deficits. Confused. RECTAL: Exam is deferred. Assessment and Plan Assessment and Plan IMPRESSION 1. Acute hypercapnic, hypoxemic respiratory failure. 2. Congestive heart failure. 3. Chronic obstructive pulmonary disease with acute exacerbation 4. Dementia 5. History of hypertension. Plan : 1. Wean O2 to 2L 2. Cont Antibiotics, and switch to PO 3. Nebs qid , duoneb 4. D/C Solumedrol 5. Add Prednisone 20 mg BID 6. Bipap at HS 12/5 , 30% FIO2 if sats drop <90. 7. Transfer to Floor Bebo Floyd MD Aug 29, 2016 12:32
[2016-08-29] MEDS: AZITHROMYCIN INJ 500 MG in SODIUM CHLOR 0.9% 250 ML INJ 250 ML IV SCH (17:49)
[2016-08-29] MEDS: predniSONE 20 MG TAB PO SCH (21:00)
[2016-08-29] MEDS: FAMOTIDINE 20 MG TAB PO SCH (21:50)
[2016-08-29] MEDS: DONEPEZIL HCL 5 MG TAB PO SCH (21:50)
[2016-08-30] VITALS (10 sets, daily range): BP systolic 154–176; BP diastolic 83–98; PULSE 84–106; RESP 18–21; TEMP 97.2–98; O2SAT 90–94
[2016-08-30] MEDS: CHLORHEXIDINE GLUCONATE 2 % 1 PACK (2 CLOTHS) TOP SCH (03:11)
[2016-08-30] MEDS: RESP: ALBUTEROL 2.5 MG/IPRATROPIUM 0.5 MG NEB (SCH) INH ×6 (04:17→23:37)
[2016-08-30] MEDS: INSULIN NovoLIN REGULAR SUPPLEMENTAL SCALE SQ SCH ×4 (06:19→21:00)
[2016-08-30 07:57] LABS: HEMATOCRIT 41.5 % (35.0-46.0); MEAN CELL VOLUME 85.3 FL (80.0-100.0); MEAN CORPUSCULAR HEMOGLOBIN 27.7 PG (27.0-34.0); MEAN CORPUSCULAR HGB CONC 32.4 % (32.0-36.0); PLATELET COUNT 220 TH/MM3 (150-450); RED BLOOD COUNT 4.86 MIL/MM3 (4.00-5.30); RED CELL DISTRIBUTION WIDTH 14.5 % (11.6-17.2); REVIEW FLAG FINAL; WHITE BLOOD COUNT 17.1 TH/MM3 (4.0-11.0)
[2016-08-30 08:23] LABS: ANION GAP 9 MEQ/L (5-15); AST (GOT) 40 U/L (15-37); BICARBONATE 31.2 MEQ/L (21.0-32.0); BLOOD UREA NITROGEN 20 MG/DL (7-18); CHLORIDE 104 MEQ/L (98-107); GLOMERULAR FILTRATION RATE 94 ML/MIN (>89); MAGNESIUM 2.5 MG/DL (1.5-2.5); POTASSIUM 3.9 MEQ/L (3.5-5.1); SODIUM (NA) 144 MEQ/L (136-145)
[2016-08-30 08:24] LABS: ALT (GPT) 65 U/L (10-53)
[2016-08-30 08:27] LABS: ALKALINE PHOSPHATASE 67 U/L (45-117); TOTAL BILIRUBIN ADULT 0.4 MG/DL (0.2-1.0)
--- NOTE | 2016-08-30 09:03 | RADRPT ---
EXAM DATE/TIME: 08/30/2016 08:27 [facility] COMPARISON: CHEST SINGLE AP, August 29, 2016, 3:53. INDICATIONS : Shortness of breath MEDICAL HISTORY : Chronic obstructive pulmonary disease. Dementia SURGICAL HISTORY : None. ENCOUNTER: Subsequent ACUITY: 4 - 6 days PAIN SCORE: Non-responsive. LOCATION: Bilateral chest FINDINGS: Portable AP view of the chest demonstrates a normal-sized cardiac silhouette with tortuous descending thoracic aorta. There are lower lung zone interstitial opacities bilaterally with small pleural base d opacities. No pneumothorax is visualized. Bones demonstrate no acute finding. CONCLUSION: Stable exam with lower lung zone interstitial opacities likely representing pulmonary edema with asso ciated small bilateral pleural effusions. Rosas Lux MD on August 30, 2016 at 8:59 Board Certified Radiologist. This report was verified electronically.
[2016-08-30] MEDS: DOCUSATE SODIUM 50 MG/SENNA 8.6 MG TAB PO SCH ×2 (09:39→20:58)
[2016-08-30] MEDS: LEVOFLOXACIN 750 MG TAB PO SCH (09:39)
[2016-08-30] MEDS: APIXABAN 2.5 MG TABLET PO SCH ×2 (09:39→20:57)
[2016-08-30] MEDS: METOPROLOL TARTRATE 25 MG TAB PO SCH ×2 (09:39→20:57)
[2016-08-30] MEDS: predniSONE 20 MG TAB PO SCH (09:39)
[2016-08-30] MEDS ORDERED: APIX2.5T PO (10:16)
[2016-08-30] MEDS ORDERED: METO50TA PO (10:16)
[2016-08-30] MEDS ORDERED: OXYC1TAB63 PO (10:16)
[2016-08-30] MEDS ORDERED: THERM PO (10:16)
[2016-08-30] MEDS ORDERED: MULTCAP3 (10:16)
[2016-08-30] MEDS ORDERED: FERR324T4 PO (10:16)
[2016-08-30] MEDS ORDERED: REST15CA PO (10:16)
[2016-08-30] MEDS ORDERED: DOCU100C PO (10:16)
[2016-08-30] MEDS ORDERED: PROC5TAB PO (10:16)
[2016-08-30] MEDS: POTASSIUM CHLORIDE 20 MEQ CONTROLLED RELEASE TAB PO SCH (11:30)
--- NOTE | 2016-08-30 11:38 | HHI.PR ---
Subjective Remarks Consulted by critical care medicine for transfer care and medical management. Chart reviewed. Patient developed acute respiratory failure secondary to pneumonia. She has improved now on 3 L nasal cannula. She denies shortness of breath, chest pain and palpitations. She is only oriented to person not to place and time. Discussed with RN, discontinue restraints and Toth catheter. Fall precautions. Objective Vitals Vital Signs Date Time Temp Pulse Resp B/P Pulse Ox O2 Delivery O2 Flow Rate FiO2 08/30/16 08:00 97.2 102 18 165/83 94 08/30/16 07:26 92 Nasal Cannula 3.00 08/30/16 04:19 92 Nasal Cannula 3.00 08/30/16 04:00 97.5 84 18 154/88 92 08/30/16 00:00 97.6 89 19 169/89 93 08/29/16 23:35 95 Nasal Cannula 3.00 08/29/16 20:19 94 Nasal Cannula 3.00 08/29/16 20:00 97.4 87 19 142/66 93 08/29/16 15:06 97.3 90 20 128/61 94 08/29/16 14:00 95 08/29/16 13:00 91 21 147/75 93 08/29/16 12:00 92 08/29/16 12:00 92 18 145/78 95 I/O 08/29/16 08/29/16 08/29/16 08/30/16 08/30/16 08/30/16 07:00 15:00 23:00 07:00 15:00 23:00 Intake Total 350 ml 510 ml 470 ml Output Total 350 ml 400 ml 350 ml 350 ml Balance 0 ml 110 ml 120 ml -350 ml Intake Oral 240 ml 400 ml 120 ml IV Total 110 ml 110 ml 350 ml Output Urine Total 350 ml 400 ml 350 ml 350 ml # Bowel Movements 1 0 Result Diagram: 08/30/16 0722 08/30/16 0722 Imaging Last Impressions Chest X-Ray 08/30/16 0600 Signed Impressions: Service Date/Time: Tuesday, August 30, 2016 08:27 - CONCLUSION: Stable exam with lower lung zone interstitial opacities likely representing pulmonary edema with associated small bilateral pleural effusions. Rosas Lux MD Head CT 08/25/16 0000 Signed Impressions: Service Date/Time: Thursday, August 25, 2016 11:44 - CONCLUSION: 1. Diffuse cerebral atrophy. 2. Diffuse periventricular and subcortical white matter small vessel ischemic changes as well as bilateral pontine small vessel ischemic changes. 3. Scattered old lacunar infarcts within the right cerebellar hemisphere. 4. No acute infarct, acute hemorrhage, mass effect or extraaxial fluid collections. 5. Minimal mucosal thickening within the left maxillary sinus. Wilner Smith MD CT Angiography 08/25/16 0000 Signed Impressions: Service Date/Time: Thursday, August 25, 2016 11:43 - CONCLUSION: 1. No pulmonary embolus identified. 2. Tubular bronchiectasis and diffuse reticular-nodular infiltrate. 3. Bibasal atelectasis. Dangelo Patricia MD Objective Remarks GENERAL: Well-developed, well-nourished in no distress on 2 L nasal cannula SKIN: Warm and dry. HEAD: Atraumatic. Normocephalic. EYES: Pupils equal and round. No scleral icterus. No injection or drainage. ENT: No nasal bleeding or discharge. Mucous membranes pink and moist. NECK: Trachea midline. No JVD. CARDIOVASCULAR: Regular rate and rhythm. RESPIRATORY: No accessory muscle use. Decreased Breath sounds equal bilaterally. GASTROINTESTINAL: Abdomen soft, non-tender, nondistended. MUSCULOSKELETAL: Extremities without clubbing, cyanosis, or edema. No obvious deformities. NEUROLOGICAL: Awake and alert. No obvious cranial nerve deficits. Motor grossly within normal limits. Five out of 5 muscle strength in the arms and legs. Normal speech. PSYCHIATRIC: Appropriate mood and affect; insight and judgment normal. A/P Problem List: (1) Respiratory failure ICD Code: J96.90 Status: Acute (2) Sinus tachycardia ICD Code: R00.0 Status: Acute (3) Elevated troponin ICD Code: R74.8 Status: Acute (4) CHF (congestive heart failure) ICD Code: I50.9 Status: Acute (5) COPD (chronic obstructive pulmonary disease) ICD Code: J44.9 Status: Chronic (6) Dementia ICD Code: F03.90 Status: Chronic Assessment and Plan Neuro/Psych: Dementia disorder NOS Monitor neuro status and avoid sedatives. Discontinue Haldol and restraints CT brain: Diffuse cerebral atrophy, no acute infarction, hemorrhage or mass effect. Pulm: Acute hypercapnic hypoxemic respiratory failure COPD exacerbation Wean down oxygen as raiza and maintain sats > 92%. Currently on 3 L Due nebs every 4 hours and as needed for dyspnea Wean prednisone Pulm is following- Dr. Floyd. CTA chest 08/25 no PE, bronchiectasis CV: Elevated troponin 0.25 Hypertension History of chronic diastolic CHF. Acute on chronic. The repeat chest x-ray image interpreted by me today Right bundle branch block/right axis deviation Place on Lopressor 25mg Q12. Home doses 50 mg twice a day Monitor HR and BP and maintain MAP>65 mmHg. 2D echo showed EF 55-60% no RWMA. EFRAIN 33 mmHg. Trace TR Start Lasix with potassium supplementation. Repeat BMP and magnesium in the morning /renal: Hypernatremia with improving Hyper-magnesium Monitor renal function, I's and O's, and electrolyte replacement per protocol. Discontinue Toth catheter GI: Hypoalbuminemia On Protonix for GI prophylaxis. Speech eval, diet per speech ID: / coag-negative staph Blood cx 08/25: Likely contaminant strep pneumonia and Legionella urinary Ag is negative. 08/26 - no growth sputum cx. Stable switch to by mouth Levaquin Endo: Hyperglycemia -steroid plus acute critical illness SSI with Accu-Chek q.6h. for glycemic control. Heme: Leukocytosis. Improving Chronic Eliquis use Follow CBC daily. Monitor trends GI prophylaxis with Protonix 40 mg daily and DVT prophylaxis with SCDs, and Eliquis 2.5 mg b.i.d. Discharge Planning Possible discharge back to SNF in the morning Jack Anderson MD Aug 30, 2016 11:38
[2016-08-30] MEDS ORDERED: FURO20TA PO (11:46)
[2016-08-30] MEDS ORDERED: PRED20 PO (11:46)
[2016-08-30] MEDS ORDERED: LEVA750T9 PO (11:46)
[2016-08-30] MEDS ORDERED: IPRASOL INH (11:46)
[2016-08-30] MEDS ORDERED: ARIC5TAB2 PO (11:46)
[2016-08-30] MEDS ORDERED: METO25TA3 PO (11:46)
[2016-08-30] MEDS ORDERED: POTA20TA5 PO (11:46)
--- NOTE | 2016-08-30 11:46 | HHI.DCPOC ---
Discharge Care Plan Diagnosis: (1) COPD (chronic obstructive pulmonary disease) (2) Respiratory failure Your Health Problems Are: Difficulty with ADL Exercise Tolerance Goals to Promote Your Health * To prevent worsening of your condition and complications * To maintain your health at the optimal level Directions to Meet Your Goals Take your medications as prescribed Follow your dietary instruction Follow activity as directed Keep your appointments as scheduled Take your immunizations and boosters as scheduled If your symptoms worsen call your PCP, if no PCP go to Urgent Care Center or Emergency Room Smoking is Dangerous to Your Health. Avoid second hand smoke Call the 24-hour hour crisis hotline for domestic abuse at Jack Anderson MD Aug 30, 2016 11:46
--- NOTE | 2016-08-30 15:12 | HHI.PR ---
Subjective Remarks Awake and off O2. Anxious. Off IV meds . Confused and not SOB. Objective Vital Signs Date Time Temp Pulse Resp B/P Pulse Ox O2 Delivery O2 Flow Rate FiO2 08/30/16 12:00 97.3 85 19 176/85 92 08/30/16 08:00 97.2 102 18 165/83 94 08/30/16 07:26 92 Nasal Cannula 3.00 08/30/16 04:19 92 Nasal Cannula 3.00 08/30/16 04:00 97.5 84 18 154/88 92 08/30/16 00:00 97.6 89 19 169/89 93 08/29/16 23:35 95 Nasal Cannula 3.00 08/29/16 20:19 94 Nasal Cannula 3.00 08/29/16 20:00 97.4 87 19 142/66 93 I/O 08/29/16 08/29/16 08/29/16 08/30/16 08/30/16 08/30/16 07:00 15:00 23:00 07:00 15:00 23:00 Intake Total 350 ml 510 ml 470 ml Output Total 350 ml 400 ml 350 ml 350 ml Balance 0 ml 110 ml 120 ml -350 ml Intake Oral 240 ml 400 ml 120 ml IV Total 110 ml 110 ml 350 ml Output Urine Total 350 ml 400 ml 350 ml 350 ml # Bowel Movements 1 0 Result Diagram: 08/30/1672108/30/1622 Objective Remarks GENERAL: This is an averagely built elderly lady pale and in no distress HEENT: Head normocephalic. Pupils are reactive. Sclerae are clear Throat is clear. NECK: Supple with no venous distension . Trachea midline and no thyroid enlargement. CHEST: Equal movements with occasional bibasilar crackles. HEART: Sounds are irregularly irregular S1-S2. No murmur. ABDOMEN: Soft, protuberant without masses, no organomegaly or tenderness. Bowel sounds are active. EXTREMITIES: decreased pulses. NEUROLOGIC: Reflexes are 1+. No deficits. Confused. RECTAL: Exam is deferred. Assessment and Plan Assessment and Plan IMPRESSION 1. Acute hypercapnic, hypoxemic respiratory failure. 2. Congestive heart failure. 3. Chronic obstructive pulmonary disease with acute exacerbation 4. Dementia 5. History of hypertension. Plan : 1. Wean O2 to RA, Keep sat >92 2. Cont Antibiotics,for 5 days 3. Nebs qid , duoneb 4. CBc,BMP in am 5. Prednisone 10 mg BID 6. D/C Bipap at HS 7. Transfer to rehab soon Bebo Floyd MD Aug 30, 2016 15:12
[2016-08-30] MEDS: FUROSEMIDE 20 MG TAB PO SCH (17:44)
[2016-08-30] MEDS: predniSONE 10 MG TAB PO SCH (20:57)
[2016-08-30] MEDS: FAMOTIDINE 20 MG TAB PO SCH (20:57)
[2016-08-30] MEDS: DONEPEZIL HCL 5 MG TAB PO SCH (20:57)
[2016-08-31] VITALS: BP 166/94; PULSE 87; RESP 20; TEMP 98.1; O2SAT 93
[2016-08-31] MEDS: RESP: ALBUTEROL 2.5 MG/IPRATROPIUM 0.5 MG NEB (SCH) INH ×3 (03:29→11:24)
[2016-08-31 04:00] VITALS: BP 155/80; PULSE 89; RESP 20; TEMP 97.5; O2SAT 91
[2016-08-31] MEDS: CHLORHEXIDINE GLUCONATE 2 % 1 PACK (2 CLOTHS) TOP SCH (04:00)
[2016-08-31] MEDS: INSULIN NovoLIN REGULAR SUPPLEMENTAL SCALE SQ SCH ×2 (05:15→11:21)
[2016-08-31 07:27] VITALS: O2SAT 92
[2016-08-31 08:02] VITALS: BP 158/80; PULSE 72; RESP 16; TEMP 98.9; O2SAT 96
[2016-08-31] MEDS ORDERED: PRED10 PO (08:09)
[2016-08-31] MEDS: APIXABAN 2.5 MG TABLET PO SCH (08:50)
[2016-08-31] MEDS: LEVOFLOXACIN 750 MG TAB PO SCH (08:50)
[2016-08-31] MEDS: METOPROLOL TARTRATE 25 MG TAB PO SCH (08:50)
[2016-08-31] MEDS: FUROSEMIDE 20 MG TAB PO SCH (08:50)
[2016-08-31] MEDS: predniSONE 10 MG TAB PO SCH (08:50)
[2016-08-31] MEDS: POTASSIUM CHLORIDE 20 MEQ CONTROLLED RELEASE TAB PO SCH (08:50)
[2016-08-31] MEDS: DOCUSATE SODIUM 50 MG/SENNA 8.6 MG TAB PO SCH (08:50)
[2016-08-31 08:59] VITALS: PULSE 105
--- NOTE | 2016-08-31 10:24 | HHI.PR ---
Subjective Remarks Follow-up COPD. Denies shortness of breath stable on 3 L nasal cannula. Did not require BiPAP overnight. She is stable for discharge back to SNF. Discussed with RN Objective Vitals Vital Signs Date Time Temp Pulse Resp B/P Pulse Ox O2 Delivery O2 Flow Rate FiO2 08/31/16 08:02 98.9 72 16 158/80 96 08/31/16 07:27 92 Nasal Cannula 3.00 08/31/16 04:00 97.5 89 20 155/80 91 08/31/16 00:00 98.1 87 20 166/94 93 08/31/16 00:00 Nasal Cannula 2.00 08/30/16 20:45 Nasal Cannula 2.00 08/30/16 20:04 93 Nasal Cannula 3.00 08/30/16 20:00 98 08/30/16 20:00 98.0 98 20 164/90 90 08/30/16 16:00 97.4 89 21 175/98 91 08/30/16 16:00 Nasal Cannula 2.00 08/30/16 12:00 97.3 85 19 176/85 92 08/30/16 12:00 Nasal Cannula 2.00 I/O 08/30/16 08/30/16 08/30/16 08/31/16 08/31/16 08/31/16 07:00 15:00 23:00 07:00 15:00 23:00 Intake Total 720 ml 180 ml Output Total 350 ml 250 ml Balance -350 ml 470 ml 180 ml Intake Oral 720 ml 180 ml Output Urine Total 350 ml 250 ml # Voids 1 1 1 Result Diagram: 08/30/16 0722 08/30/16 0722 Imaging Last Impressions Chest X-Ray 08/30/16 0600 Signed Impressions: Service Date/Time: Tuesday, August 30, 2016 08:27 - CONCLUSION: Stable exam with lower lung zone interstitial opacities likely representing pulmonary edema with associated small bilateral pleural effusions. Rosas Lux MD Head CT 08/25/16 0000 Signed Impressions: Service Date/Time: Thursday, August 25, 2016 11:44 - CONCLUSION: 1. Diffuse cerebral atrophy. 2. Diffuse periventricular and subcortical white matter small vessel ischemic changes as well as bilateral pontine small vessel ischemic changes. 3. Scattered old lacunar infarcts within the right cerebellar hemisphere. 4. No acute infarct, acute hemorrhage, mass effect or extraaxial fluid collections. 5. Minimal mucosal thickening within the left maxillary sinus. Wilner Smith MD CT Angiography 08/25/16 0000 Signed Impressions: Service Date/Time: Thursday, August 25, 2016 11:43 - CONCLUSION: 1. No pulmonary embolus identified. 2. Tubular bronchiectasis and diffuse reticular-nodular infiltrate. 3. Bibasal atelectasis. Dangelo Patricia MD Objective Remarks GENERAL: Well-developed, well-nourished in no distress on 3 L nasal cannula SKIN: Warm and dry. Bruising left upper extremity HEAD: Atraumatic. Normocephalic. EYES: Pupils equal and round. No scleral icterus. No injection or drainage. ENT: No nasal bleeding or discharge. Mucous membranes pink and moist. NECK: Trachea midline. No JVD. CARDIOVASCULAR: Regular rate and rhythm. RESPIRATORY: No accessory muscle use. Decreased Breath sounds equal bilaterally. GASTROINTESTINAL: Abdomen soft, non-tender, nondistended. MUSCULOSKELETAL: Extremities without clubbing, cyanosis, or edema. No obvious deformities. NEUROLOGICAL: Awake and alert. No obvious cranial nerve deficits. Motor grossly within normal limits. Five out of 5 muscle strength in the arms and legs. Normal speech. Nonfocal PSYCHIATRIC: Appropriate mood and affect; insight and judgment normal. Procedures None A/P Problem List: (1) Respiratory failure ICD Code: J96.90 Status: Acute (2) Sinus tachycardia ICD Code: R00.0 Status: Acute (3) Elevated troponin ICD Code: R74.8 Status: Acute (4) CHF (congestive heart failure) ICD Code: I50.9 Status: Acute (5) COPD (chronic obstructive pulmonary disease) ICD Code: J44.9 Status: Chronic (6) Dementia ICD Code: F03.90 Status: Chronic Assessment and Plan Neuro/Psych: Dementia disorder NOS Stable. Monitor neuro status and avoid sedatives. Discontinue Haldol and restraints CT brain: Diffuse cerebral atrophy, no acute infarction, hemorrhage or mass effect. Pulm: Acute hypercapnic hypoxemic respiratory failure COPD exacerbation Wean down oxygen as raiza and maintain sats > 92%. Currently on 3 L Due nebs every 4 hours and as needed for dyspnea Continue to taper prednisone Pulm is following- Dr. Floyd. CTA chest 08/25 no PE, bronchiectasis CV: Elevated troponin 0.25 Hypertension History of chronic diastolic CHF. Acute on chronic. Improving Right bundle branch block/right axis deviation Continue Lopressor 25mg Q12. Home dose 50 mg twice a day Monitor HR and BP and maintain MAP>65 mmHg. 2D echo showed EF 55-60% no RWMA. EFRAIN 33 mmHg. Trace TR Continue Lasix with potassium supplementation. Repeat BMP and magnesium pending /renal: Hypernatremia with improving Hyper-magnesium Monitor renal function, I's and O's, and electrolyte replacement per protocol. Discontinued Toth catheter GI: Hypoalbuminemia On Protonix for GI prophylaxis. Speech eval, diet per speech ID: 03/17 coag-negative staph Blood cx 08/25: Likely contaminant strep pneumonia and Legionella urinary Ag is negative. 08/26 - no growth sputum cx. Stable switched to by mouth Levaquin Endo: Hyperglycemia -steroid plus acute critical illness SSI with Accu-Chek q.6h. for glycemic control. Heme: Leukocytosis. Improving Chronic Eliquis use Follow CBC daily. Monitor trends GI prophylaxis with Protonix 40 mg daily and DVT prophylaxis with SCDs, and Eliquis 2.5 mg b.i.d. Discharge Planning Stable for discharge Jack Anderson MD Aug 31, 2016 10:24
--- NOTE | 2016-08-31 10:26 | HHI.DS ---
Discharge Summary Admission Date Aug 25, 2016 at 10:57 Discharge Date: Aug 31, 2016 Admitting Diagnosis respiratory failure, dehydration, (1) Respiratory failure ICD Code: J96.90 Diagnosis: Principal (2) Sinus tachycardia ICD Code: R00.0 Diagnosis: Secondary (3) Elevated troponin ICD Code: R74.8 Diagnosis: Secondary (4) CHF (congestive heart failure) ICD Code: I50.9 Diagnosis: Principal (5) COPD (chronic obstructive pulmonary disease) ICD Code: J44.9 Diagnosis: Principal (6) Dementia ICD Code: F03.90 Diagnosis: Principal Procedures None Brief History - From Admission The patient is an 89-year-old female with a past medical history of questionable CHF, COPD and dementia, who presented to the [facility] ED from a local nursing facility after she was found tachypneic, hypoxic and in respiratory distress. CBC/BMP: 08/30/16 0722 08/30/16 0722 Significant Findings Laboratory Tests Test 08/29/16 08/29/16 08/30/16 05:39 05:59 07:22 White Blood Count 20.4 TH/MM3 17.1 TH/MM3 (4.0-11.0) (4.0-11.0) Neutrophils (%) (Auto) 91.8 % (16.0-70.0) Lymphocytes (%) (Auto) 4.5 % (9.0-44.0) Neutrophils # (Auto) 18.7 TH/MM3 (1.8-7.7) Lymphocytes # (Auto) 0.9 TH/MM3 (1.0-4.8) Neutrophils % (Manual) 91 % (16-70) Lymphocytes % 3 % (9-44) Neutrophils # (Manual) 19.6 TH/MM3 (1.8-7.7) Metamyelocytes 3 % (0-1) Sodium Level 148 MEQ/L (136-145) Chloride Level 108 MEQ/L (98-107) Carbon Dioxide Level 34.7 MEQ/L (21.0-32.0) Blood Urea Nitrogen 26 MG/DL (7-18) 20 MG/DL (7-18) Estimat Glomerular Filtration 84 ML/MIN (>89) Rate Magnesium Level 2.7 MG/DL (1.5-2.5) Aspartate Amino Transf 50 U/L (15-37) 40 U/L (15-37) (AST/SGOT) Alanine Aminotransferase 54 U/L (10-53) 65 U/L (10-53) (ALT/SGPT) Albumin 2.4 GM/DL 2.4 GM/DL (3.4-5.0) (3.4-5.0) Random Glucose 123 MG/DL (74-106) Imaging Last Impressions Chest X-Ray 08/30/16 0600 Signed Impressions: Service Date/Time: Tuesday, August 30, 2016 08:27 - CONCLUSION: Stable exam with lower lung zone interstitial opacities likely representing pulmonary edema with associated small bilateral pleural effusions. Rosas Lux MD Head CT 08/25/16 0000 Signed Impressions: Service Date/Time: Thursday, August 25, 2016 11:44 - CONCLUSION: 1. Diffuse cerebral atrophy. 2. Diffuse periventricular and subcortical white matter small vessel ischemic changes as well as bilateral pontine small vessel ischemic changes. 3. Scattered old lacunar infarcts within the right cerebellar hemisphere. 4. No acute infarct, acute hemorrhage, mass effect or extraaxial fluid collections. 5. Minimal mucosal thickening within the left maxillary sinus. Wilner Smith MD CT Angiography 08/25/16 0000 Signed Impressions: Service Date/Time: Thursday, August 25, 2016 11:43 - CONCLUSION: 1. No pulmonary embolus identified. 2. Tubular bronchiectasis and diffuse reticular-nodular infiltrate. 3. Bibasal atelectasis. Dangelo Patricia MD PE at Discharge GENERAL: Well-developed, well-nourished in no distress on 3 L nasal cannula SKIN: Warm and dry. Bruising left upper extremity HEAD: Atraumatic. Normocephalic. EYES: Pupils equal and round. No scleral icterus. No injection or drainage. ENT: No nasal bleeding or discharge. Mucous membranes pink and moist. NECK: Trachea midline. No JVD. CARDIOVASCULAR: Regular rate and rhythm. RESPIRATORY: No accessory muscle use. Decreased Breath sounds equal bilaterally. GASTROINTESTINAL: Abdomen soft, non-tender, nondistended. MUSCULOSKELETAL: Extremities without clubbing, cyanosis, or edema. No obvious deformities. NEUROLOGICAL: Awake and alert. No obvious cranial nerve deficits. Motor grossly within normal limits. Five out of 5 muscle strength in the arms and legs. Normal speech. Nonfocal PSYCHIATRIC: Appropriate mood and affect; insight and judgment normal. Hospital Course Neuro/Psych: Dementia disorder NOS Stable. Monitor neuro status and avoid sedatives. Discontinue Haldol and restraints CT brain: Diffuse cerebral atrophy, no acute infarction, hemorrhage or mass effect. Pulm: Acute hypercapnic hypoxemic respiratory failure COPD exacerbation Wean down oxygen as raiza and maintain sats > 92%. Currently on 3 L Due nebs every 4 hours and as needed for dyspnea Continue to taper prednisone Pulm is following- Dr. Floyd. CTA chest 08/25 no PE, bronchiectasis CV: Elevated troponin 0.25 secondary to respiratory failure, COPD exacerbation and heart failure Hypertension History of chronic diastolic CHF. Acute on chronic. Improving Right bundle branch block/right axis deviation Continue Lopressor 25mg Q12. Home dose 50 mg twice a day Monitor HR and BP and maintain MAP>65 mmHg. 2D echo showed EF 55-60% no RWMA. EFRAIN 33 mmHg. Trace TR Continue Lasix with potassium supplementation. Repeat BMP and magnesium pending /renal: Hypernatremia with improving Hyper-magnesium Monitor renal function, I's and O's, and electrolyte replacement per protocol. Discontinued Toth catheter GI: Hypoalbuminemia On Protonix for GI prophylaxis. Speech eval, diet per speech ID: 03/17 coag-negative staph Blood cx 08/25: Likely contaminant strep pneumonia and Legionella urinary Ag is negative. 08/26 - no growth sputum cx. Stable switched to by mouth Levaquin Endo: Hyperglycemia -steroid plus acute critical illness SSI with Accu-Chek q.6h. for glycemic control. Heme: Leukocytosis. Improving Chronic Eliquis use Follow CBC daily. Monitor trends GI prophylaxis with Protonix 40 mg daily and DVT prophylaxis with SCDs, and Eliquis 2.5 mg b.i.d. Pt Condition on Discharge: Stable Discharge Disposition: Discharge to SNF Discharge Time: > 30 minutes Discharge Instructions DIET: Follow Instructions for: Heart Healthy Diet Speech Therapy-Diet Recommends: Pureed Activities you can perform: Regular-No Restrictions Activities to Avoid: Driving Follow up Referrals: PCP Follow-up - 1 Week New Orders: BASIC METABOLIC PROF - 1 Week X-RAY CHEST PA & LAT - 6 Weeks New Medications: Donepezil HCl (Aricept) 5 Mg Tablet 5 MG PO HS memory #30 MG Furosemide (Furosemide) 20 Mg Tab 20 MG PO DAILY edema #30 TAB Ipratropium-Albuterol Neb (Duoneb) 0.5-2.5 Mg/3 Ml Neb 1 AMPULE INH Q4HR NEB Breathing Treatment #100 ML Levofloxacin (Levaquin) 750 Mg Tablet 750 MG PO DAILY Infection #4 MG Metoprolol Tartrate (Metoprolol Tartrate) 25 Mg Tab 25 MG PO Q12HR Regulate Heart Beat #60 TAB Potassium Chloride Microencaps (Potassium Chloride Microencaps) 20 Meq Tab 20 MEQ PO DAILY Electrolyte Replacement #30 TAB Prednisone (Prednisone) 10 Mg Tab 10 MG PO BID Take 1 pill twice a day for 3 days then 1 pill daily for 4 days Control Inflammation #10 TAB Continued Medications: Apixaban (Eliquis) 2.5 Mg Tab 2.5 MG PO BID Blood Clot Prevention Ref 0 TAB Docusate Sodium (Docusate Sodium) 100 Mg Cap 100 MG PO DAILY Prevent Constipation #60 Ref 0 CAP Multiple Vitamins W/ Minerals (Thera M Plus) 1 Tab 1 TAB PO DAILY Nutritional Supplement Ref 0 TAB Prochlorperazine Maleate (Prochlorperazine Maleate) 5 Mg Tab 5 MG PO Q6H PRN NAUSEA OR VOMITING Ref 0 TAB Additional Information I spent 35 minutes [id number] with the patient or on the monteiro discussing the patient's disposition, prognosis, and plan of care with patient's caregivers. Over half the time spent was devoted to counseling the patient regarding placement in coordinating care with caregivers and case management. Jack Anderson MD Aug 31, 2016 10:26
[2016-08-31 12:02] VITALS: BP 154/76; PULSE 70; RESP 16; TEMP 98.6; O2SAT 96
--- NOTE | 2016-08-31 13:25 | HHI.PR ---
Subjective Remarks Better today. taking her diet. Confused and not SOB. Objective Vital Signs Date Time Temp Pulse Resp B/P Pulse Ox O2 Delivery O2 Flow Rate FiO2 08/31/16 08:02 98.9 72 16 158/80 96 08/31/16 07:27 92 Nasal Cannula 3.00 08/31/16 04:00 97.5 89 20 155/80 91 08/31/16 00:00 98.1 87 20 166/94 93 08/31/16 00:00 Nasal Cannula 2.00 08/30/16 20:45 Nasal Cannula 2.00 08/30/16 20:04 93 Nasal Cannula 3.00 08/30/16 20:00 98 08/30/16 20:00 98.0 98 20 164/90 90 08/30/16 16:00 97.4 89 21 175/98 91 08/30/16 16:00 Nasal Cannula 2.00 I/O 08/30/16 08/30/16 08/30/16 08/31/16 08/31/16 08/31/16 07:00 15:00 23:00 07:00 15:00 23:00 Intake Total 720 ml 180 ml Output Total 350 ml 250 ml Balance -350 ml 470 ml 180 ml Intake Oral 720 ml 180 ml Output Urine Total 350 ml 250 ml # Voids 1 1 1 Result Diagram: 08/30/1672108/30/16721 Objective Remarks GENERAL: This is an averagely built elderly lady pale . HEENT: Head normocephalic. Pupils are reactive. Sclerae are clear Throat is clear. NECK: Supple with no venous distension . Trachea midline and no thyroid enlargement. CHEST: Equal movements with occasional bibasilar crackles. HEART: Sounds are irregularly irregular S1-S2. No murmur. ABDOMEN: Soft, protuberant without masses, no organomegaly or tenderness. Bowel sounds are active. EXTREMITIES: decreased pulses. NEUROLOGIC: Reflexes are 1+. No deficits. Confused. RECTAL: Exam is deferred. Assessment and Plan Assessment and Plan IMPRESSION 1. Acute hypercapnic, hypoxemic respiratory failure. 2. Congestive heart failure. 3. Chronic obstructive pulmonary disease with acute exacerbation 4. Dementia 5. History of hypertension. Plan : 1. Wean O2 to RA, Keep sat >92 2. Cont Antibiotics,for 4 days 3. Nebs qid , duoneb 4. Rehab placement 5. Prednisone 10 mg BID 6. Chest X ray Bebo Floyd MD Aug 31, 2016 13:25
== END 2016-08-31 14:30 | DRG 208 ==
LOC: NEPE 07:48 → NEDA 10:57 → NEDH 15:00 → HIME 16:55 → N04A 08-29 15:07 → N04B 08-30 18:10
PROVIDERS: ADMIT Internal Medicine; ATTEND Internal Medicine
PROC: 0BH17EZ Insertion of Endotracheal Airway into Trachea, Via Natural or Artificial Opening (ICD-10-PCS; principal; 2016-08-25)
PROC: 5A1935Z Respiratory Ventilation, Less than 24 Consecutive Hours (ICD-10-PCS; 2016-08-25)
DX: J96.01 Acute respiratory failure with hypoxia (principal); J18.9 Pneumonia, unspecified organism; I50.33 Acute on chronic diastolic (congestive) heart failure; E87.0 Hyperosmolality and hypernatremia; I11.0 Hypertensive heart disease with heart failure; F03.90 Unspecified dementia, unspecified severity, without behavioral disturbance, psychotic disturbance, mood disturbance, and anxiety; J44.0 Chronic obstructive pulmonary disease with (acute) lower respiratory infection; I42.9 Cardiomyopathy, unspecified; J44.1 Chronic obstructive pulmonary disease with (acute) exacerbation; F41.9 Anxiety disorder, unspecified; J96.02 Acute respiratory failure with hypercapnia; R74.8 Abnormal levels of other serum enzymes; F32.9 Major depressive disorder, single episode, unspecified; D64.9 Anemia, unspecified; I45.10 Unspecified right bundle-branch block; E88.09 Other disorders of plasma-protein metabolism, not elsewhere classified; E86.0 Dehydration; R73.9 Hyperglycemia, unspecified; G31.9 Degenerative disease of nervous system, unspecified; Z96.643 Presence of artificial hip joint, bilateral; R00.0 Tachycardia, unspecified; Z78.1 Physical restraint status
CPT/HCPCS: 31500; 36600; 70450; 71010; 71275; 80048; 80053; 81001; 82550; 82805; 82948; 83735; 83880; 84100; 84484; 85007; 85025; 85027; 85610; 87040; 87070; 87077; 87149; 87186; 87205; 87449; 87641; 93005; 93306; 94002; 94003; 94640; 94664; 96374; 96375; C9113; J0330; J0360; J0456; J1630; J1940; J2543; J2920; J2930; J3370; J3480; J7050; J7512; J7613; Q9967